=== PATIENT | male | born 1930 ===

== ENCOUNTER 2016-10-13 15:51 | Inpatient (IN) | payer MEDICARE, OTHER, SELFPAY ==
[2016-10-13 18:34] VITALS: BMI 26.4
[2016-10-13] MEDS: Insulin Lispro (humaLOG) 100 Units/ml Inj SC SCH (21:40)
[2016-10-14] MEDS: Insulin Lispro (humaLOG) 100 Units/ml Inj SC SCH ×4 (06:32→21:20)
[2016-10-14] MEDS: GlipiZIDE 5 mg SR Tab PO SCH (08:38)
--- NOTE | 2016-10-14 12:15 | CP.PCM.CON ---
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 Patient with multiple risk factors, including but not limited to DM, HTN, hyperlipidemia. MRI showed a right BG infarct. Review of Systems - Constitutional Constitutional: absent: Anorexia - EENT Nose/Mouth/Throat: Nasal Congestion - Cardiovascular Cardiovascular: absent: Chest Pain - Respiratory Respiratory: absent: Cough, Dyspnea - Gastrointestinal Gastrointestinal: absent: Belching - Musculoskeletal Musculoskeletal: Other (left hand swelling). absent: Back Pain - Integumentary Integumentary: absent: Photosensitivity - Neurological Neurological: absent: Abnormal Movements, Burning Sensations, Paresthesias - Psychiatric Psychiatric: absent: Anxiety Past Patient History - Past Medical History & Family History Past Medical History?: Yes - Past Social History Smoking Status: Never Smoked Alcohol: None Home Situation {Lives}: With Family (2 flights) - CARDIAC Hx Hypercholesterolemia: Yes Hx Hypertension: Yes - PULMONARY Hx Respiratory Disorders: Yes Hx Pneumonia: Yes - NEUROLOGICAL Hx Neurological Disorder: Yes HX Cerebrovascular Accident: Yes - HEENT Hx HEENT Problems: Yes Hx Cataracts: Yes - RENAL Hx Chronic Kidney Disease: Yes Other/Comment: CKD II - ENDOCRINE/METABOLIC Hx Endocrine Disorders: Yes Hx Diabetes Mellitus Type 2: Yes Other/Comment: Diabetic Neuropathy. - HEMATOLOGICAL/ONCOLOGICAL Hx Blood Disorders: No Hx AIDS: No Hx Human Immunodeficiency Virus (HIV): No - INTEGUMENTARY Hx Dermatological Problems: No - MUSCULOSKELETAL/RHEUMATOLOGICAL Hx Falls: Yes - GASTROINTESTINAL Hx Gastrointestinal Disorders: No - GENITOURINARY/GYNECOLOGICAL Hx Genitourinary Disorders: No - PSYCHIATRIC Hx Psychophysiologic Disorder: No Hx Substance Use: No - SURGICAL HISTORY Hx Surgeries: No - ANESTHESIA Hx Anesthesia: No Meds Allergies/Adverse Reactions: Allergies Allergy/AdvReac Type Severity Reaction Status Date / Time No Known Allergies Allergy Unverified 10/13/16 16:07 - Medications Medications: Current Medications Amlodipine Besylate (Norvasc) 10 mg PO DAILY [facility] Last Admin: 10/14/16 08:38 Dose: 10 mg Aspirin (Ecotrin) 81 mg PO DAILY [facility] Last Admin: 10/14/16 08:38 Dose: 81 mg Atorvastatin Calcium (Lipitor) 40 mg PO HS [facility] Last Admin: 10/13/16 21:38 Dose: 40 mg Clopidogrel Bisulfate (Plavix) 75 mg PO DAILY [facility] Last Admin: 10/14/16 08:37 Dose: 75 mg Gabapentin (Neurontin) 300 mg PO [facility] Glipizide (Glucotrol Xl) 5 mg PO DAILY [facility] Last Admin: 10/14/16 08:38 Dose: 5 mg Heparin Sodium (Porcine) (Heparin) 5,000 units SC Q8 [facility] PRN Reason: Protocol Last Admin: 10/14/16 05:54 Dose: 5,000 units Hydralazine HCl (Apresoline) 50 mg PO Q8 [facility] Last Admin: 10/14/16 05:55 Dose: 50 mg Insulin Human Lispro (Humalog) 0 units SC ACHS [facility] PRN Reason: Protocol Last Admin: 10/14/16 06:32 Dose: Not Given Physical Exam - Constitutional Appears: No Acute Distress - Head Exam Head Exam: ATRAUMATIC, NORMAL INSPECTION, NORMOCEPHALIC - Eye Exam Eye Exam: EOMI. absent: Normal appearance (left conjunctiva are red) - ENT Exam ENT Exam: Mucous Membranes Moist - Respiratory Exam Respiratory Exam: NORMAL BREATHING PATTERN - Cardiovascular Exam Cardiovascular Exam: REGULAR RHYTHM - GI/Abdominal Exam GI & Abdominal Exam: absent: Distended - Extremities Exam Extremities exam: Negative for: calf tenderness - Neurological Exam Neurological exam: Alert - Psychiatric Exam Psychiatric exam: Normal Affect, Normal Mood Results - Vital Signs Recent Vital Signs: Last Vital Signs Temp 96.9 F L 10/14/16 09:07 Pulse 78 10/14/16 09:07 Resp 19 10/14/16 09:07 BP 185/82 H 10/14/16 09:07 Pulse Ox 98 10/14/16 09:07 - Labs Labs: Laboratory Results - last 24 hr 10/13/16 10/14/16 21:18 05:34 POC Glucose (mg/dL) 211 H 124 H Assessment & Plan - Assessment and Plan (Free Text) Assessment: 85 y/o right hand dominant male with right cva left HP minimal extension in the elbow, no flexion and some hip extension as well no distal ankle or foot movement PT/OT to continue to help increase functional independence Team conference for d/c planning Pain: controlled Vascular: no evidence of DVT GI: No evidence of constipation or diarrhea Patient is an excellent acute rehabilitation candidate and will have focused speech, PT, OT and recreational therapy to help facilitate a safe and appropriate d/c plan impairment code 01.1
--- NOTE | 2016-10-14 16:24 | CP.PCM.PN ---
Subjective - Date & Time of Evaluation Date of Evaluation: 10/14/16 Time of Evaluation: 16:23 - Subjective Subjective: right CVA left HP Objective - Vital Signs/Intake and Output Vital Signs (last 24 hours): Temp Pulse Resp BP Pulse Ox 96.9 F L 86 19 186/99 H 98 10/14/16 09:07 10/14/16 13:08 10/14/16 09:07 10/14/16 13:08 10/14/16 09:07 - Medications Medications: Current Medications Amlodipine Besylate (Norvasc) 10 mg PO DAILY [facility] Last Admin: 10/14/16 08:38 Dose: 10 mg Aspirin (Ecotrin) 81 mg PO DAILY [facility] Last Admin: 10/14/16 08:38 Dose: 81 mg Atorvastatin Calcium (Lipitor) 40 mg PO HS [facility] Last Admin: 10/13/16 21:38 Dose: 40 mg Clopidogrel Bisulfate (Plavix) 75 mg PO DAILY [facility] Last Admin: 10/14/16 08:37 Dose: 75 mg Gabapentin (Neurontin) 300 mg PO HS [facility] Glipizide (Glucotrol Xl) 5 mg PO DAILY [facility] Last Admin: 10/14/16 08:38 Dose: 5 mg Heparin Sodium (Porcine) (Heparin) 5,000 units SC Q8 [facility] PRN Reason: Protocol Last Admin: 10/14/16 13:07 Dose: 5,000 units Hydralazine HCl (Apresoline) 100 mg PO Q8 [facility] Insulin Human Lispro (Humalog) 0 units SC ACHS [facility] PRN Reason: Protocol Last Admin: 10/14/16 12:31 Dose: 1 unit Physiatry Overall Plan of Care - Overall Plan of Care Estimated Length of Stay in Weeks: 3 Rehab Impairment: Mobility, Gait, Cognition, Speech, Balance, Coordination Etiologic Diagnosis: Cerebrovascular Accident Rehab/Medical Prognosis: Guarded - Anticipated Interventions Physical Therapy:: Yes Occupational Therapy:: Yes Speech Therapy:: Yes Recreational Therapy:: Yes - Therapy Goals Bed Mobility: Minimal Assistance Ambulation: Minimal Assistance Functional Positional Changes:: Minimal Assistance - Discharge Plan Discharge Destination: Subacute
--- NOTE | 2016-10-14 19:03 | CP.PCM.CON ---
History of Present Illness - History of Present Illness History of Present Illness: 85 year old male with PMHx of DM, HTN, HLD, right CVA was seen resting comfortably at bedside regarding elongated toenails. Patient states that he has not had his nails cut in a long time. He admits to pain to his nails. He denies n/v/f/c/sob/cp. Past Patient History - Past Medical History & Family History Past Medical History?: Yes - Past Social History Smoking Status: Never Smoked Alcohol: None Home Situation {Lives}: With Family (2 flights) - CARDIAC Hx Hypercholesterolemia: Yes Hx Hypertension: Yes - PULMONARY Hx Respiratory Disorders: Yes Hx Pneumonia: Yes - NEUROLOGICAL Hx Neurological Disorder: Yes HX Cerebrovascular Accident: Yes - HEENT Hx HEENT Problems: Yes Hx Cataracts: Yes - RENAL Hx Chronic Kidney Disease: Yes Other/Comment: CKD II - ENDOCRINE/METABOLIC Hx Endocrine Disorders: Yes Hx Diabetes Mellitus Type 2: Yes Other/Comment: Diabetic Neuropathy. - HEMATOLOGICAL/ONCOLOGICAL Hx Blood Disorders: No Hx AIDS: No Hx Human Immunodeficiency Virus (HIV): No - INTEGUMENTARY Hx Dermatological Problems: No - MUSCULOSKELETAL/RHEUMATOLOGICAL Hx Falls: Yes - GASTROINTESTINAL Hx Gastrointestinal Disorders: No - GENITOURINARY/GYNECOLOGICAL Hx Genitourinary Disorders: No - PSYCHIATRIC Hx Psychophysiologic Disorder: No Hx Substance Use: No - SURGICAL HISTORY Hx Surgeries: No - ANESTHESIA Hx Anesthesia: No Meds Allergies/Adverse Reactions: Allergies Allergy/AdvReac Type Severity Reaction Status Date / Time No Known Allergies Allergy Unverified 10/13/16 16:07 - Medications Medications: Current Medications Amlodipine Besylate (Norvasc) 10 mg PO DAILY [facility] Last Admin: 10/14/16 08:38 Dose: 10 mg Aspirin (Ecotrin) 81 mg PO DAILY [facility] Last Admin: 10/14/16 08:38 Dose: 81 mg Atorvastatin Calcium (Lipitor) 40 mg PO HS [facility] Last Admin: 10/13/16 21:38 Dose: 40 mg Clopidogrel Bisulfate (Plavix) 75 mg PO DAILY [facility] Last Admin: 10/14/16 08:37 Dose: 75 mg Gabapentin (Neurontin) 300 mg PO [facility] Glipizide (Glucotrol Xl) 5 mg PO DAILY [facility] Last Admin: 10/14/16 08:38 Dose: 5 mg Heparin Sodium (Porcine) (Heparin) 5,000 units SC Q8 [facility] PRN Reason: Protocol Last Admin: 10/14/16 13:07 Dose: 5,000 units Hydralazine HCl (Apresoline) 100 mg PO Q8 [facility] Insulin Human Lispro (Humalog) 0 units SC ACHS [facility] PRN Reason: Protocol Last Admin: 10/14/16 16:34 Dose: Not Given Tobramycin/Dexamethasone (Tobradex Opht Susp) 1 drop OU Q6 [facility] Stop: 10/19/16 18:01 Physical Exam - Constitutional Appears: Well, Non-toxic, No Acute Distress - Extremities Exam Additional comments: Vasc: DP and PT pulses palpable 2/4 b/l. Skin temperature warm to cool from proximal to distal b/l. CFT <3 seconds to all digits b/l. No edema noted to b/l LE Neuro: Gross sensation intact b/l. Derm: Nails 1-5 b/l are thickened and elongated. Webspaces 1-5 are clean, dry, intact. No open lesions noted Ortho: Pain on palpation to nails 1-5 b/l. - Neurological Exam Neurological exam: Alert, Oriented x3 - Psychiatric Exam Psychiatric exam: Normal Affect, Normal Mood Results - Vital Signs Recent Vital Signs: Last Vital Signs Temp 97.4 F L 10/14/16 16:41 Pulse 86 10/14/16 16:41 Resp 18 10/14/16 16:41 BP 171/88 H 10/14/16 16:41 Pulse Ox 98 10/14/16 16:41 - Labs Labs: Laboratory Results - last 24 hr 10/13/16 10/14/16 10/14/16 21:18 05:34 11:29 POC Glucose (mg/dL) 211 H 124 H 154 H 10/14/16 16:07 POC Glucose (mg/dL) 90 Assessment & Plan - Assessment and Plan (Free Text) Assessment: 85 year old male with elongated toenails 1-5 b/l Plan: Patient examined and evaluated Chart and vitals reviewed Discussed in detail with attending, Dr. Zamora Nails 1-5 b/l were debrided in thickness and in length with nail nippers without incident Thank you for allowing us to care for your patient Please re-consult as needed
[2016-10-14] MEDS: Dexamethasone/Tobramycin Ophth Susp OU SCH ×2 (19:56→23:41)
--- NOTE | 2016-10-14 22:20 | CP.PCM.HP ---
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 Present on Admission - Present on Admission Any Indicators Present on Admission: No History of DVT/PE: No History of Uncontrolled Diabetes: No Urinary Catheter: No Decubitus Ulcer Present: No Review of Systems - Review of Systems All systems: reviewed and no additional remarkable complaints except Past Patient History - Past Medical History & Family History Past Medical History?: Yes Past Family History: Reviewed and not pertinent - Past Social History Smoking Status: Never Smoked Alcohol: None Drugs: Denies Home Situation {Lives}: With Family (2 flights) - CARDIAC Hx Hypercholesterolemia: Yes Hx Hypertension: Yes - PULMONARY Hx Respiratory Disorders: Yes Hx Pneumonia: Yes - NEUROLOGICAL Hx Neurological Disorder: Yes HX Cerebrovascular Accident: Yes - HEENT Hx HEENT Problems: Yes Hx Cataracts: Yes - RENAL Hx Chronic Kidney Disease: Yes Other/Comment: CKD II - ENDOCRINE/METABOLIC Hx Endocrine Disorders: Yes Hx Diabetes Mellitus Type 2: Yes Other/Comment: Diabetic Neuropathy. - HEMATOLOGICAL/ONCOLOGICAL Hx Blood Disorders: No Hx AIDS: No Hx Human Immunodeficiency Virus (HIV): No - INTEGUMENTARY Hx Dermatological Problems: No - MUSCULOSKELETAL/RHEUMATOLOGICAL Hx Falls: Yes - GASTROINTESTINAL Hx Gastrointestinal Disorders: No - GENITOURINARY/GYNECOLOGICAL Hx Genitourinary Disorders: No - PSYCHIATRIC Hx Psychophysiologic Disorder: No Hx Substance Use: No - SURGICAL HISTORY Hx Surgeries: No - ANESTHESIA Hx Anesthesia: No Meds Home Medications: Home Medication List Medication Instructions Recorded Confirmed Type Calcium/Vitamin D [Oyster Shell 1 tab PO BIDWM tab 11/02/16 Rx Calcium/Vitamin D 500 mg-200 IU] Ergocalciferol [Drisdol 50,000 1 cap PO Q7D cap 11/02/16 Rx Intl Units Cap] Famotidine [Pepcid] 20 mg PO BID tab 11/02/16 Rx GlipiZIDE SR [Glucotrol XL] 5 mg PO DAILY tab 11/02/16 Rx Sertraline [Zoloft] 12.5 mg PO DAILY tab 11/02/16 Rx Allergies/Adverse Reactions: Allergies Allergy/AdvReac Type Severity Reaction Status Date / Time No Known Allergies Allergy Unverified 10/13/16 16:07 Physical Exam - Constitutional Appears: Well, No Acute Distress - Head Exam Head Exam: ATRAUMATIC, NORMAL INSPECTION, NORMOCEPHALIC - Eye Exam Eye Exam: EOMI, Normal appearance, PERRL Pupil Exam: NORMAL ACCOMODATION, PERRL - ENT Exam ENT Exam: Mucous Membranes Moist, Normal Exam - Neck Exam Neck exam: Positive for: Normal Inspection - Respiratory Exam Respiratory Exam: Clear to Auscultation Bilateral, NORMAL BREATHING PATTERN - Cardiovascular Exam Cardiovascular Exam: REGULAR RHYTHM, +S1, +S2 - GI/Abdominal Exam GI & Abdominal Exam: Normal Bowel Sounds, Soft. absent: Tenderness - Back Exam Back exam: NORMAL INSPECTION - Neurological Exam Neurological exam: Abnormal Gait, Alert, CN II-XII Intact, Motor Sensory Deficit - Psychiatric Exam Psychiatric exam: Normal Affect, Normal Mood - Skin Skin Exam: Dry, Intact, Normal Color, Warm Results - Vital Signs Recent Vital Signs: Last Vital Signs Temp 97.4 F L 10/14/16 20:35 Pulse 76 10/14/16 21:13 Resp 20 10/14/16 20:35 BP 181/84 H 10/14/16 21:13 Pulse Ox 97 10/14/16 20:35 - Labs Result Diagrams: 10/23/16 14:35 10/30/16 07:43 Labs: Laboratory Results - last 24 hr 10/14/16 10/14/16 10/14/16 05:34 11:29 16:07 POC Glucose (mg/dL) 124 H 154 H 90 10/14/16 20:24 POC Glucose (mg/dL) 117 H Assessment & Plan (1) CVA (cerebral vascular accident) Assessment and Plan: ASA/Plavix/Lipitor PT/OT and Speech Therapy Status: Acute Priority: High (2) Hypertension Assessment and Plan: Continue Hydralazine and Amlodipine Status: Chronic Priority: Low (3) Diabetes mellitus Assessment and Plan: Continue Glipizide Insulin Lispiro Status: Chronic Priority: Low
[2016-10-15] MEDS: Dexamethasone/Tobramycin Ophth Susp OU SCH ×3 (05:42→17:05)
[2016-10-15] MEDS: Insulin Lispro (humaLOG) 100 Units/ml Inj SC SCH ×4 (06:34→21:27)
[2016-10-15 08:21] LABS: HEMATOCRIT 40.5 % (35.0-51.0); MEAN CELL VOLUME 82.9 fl (80.0-94.0); MEAN CORPUSCULAR HGB CONC 32.6 g/dL (33.0-37.0); RED CELL DISTRIBUTION WIDTH 15.4 % (11.5-14.5); WHITE BLOOD COUNT 7.8 K/uL (4.8-10.8)
[2016-10-15 08:24] LABS: BILIRUBIN,TOTAL 0.5 mg/dl (0.2-1.3); POTASSIUM 4.2 MMOL/L (3.6-5.0); TOTAL PROTEIN 6.8 G/DL (6.3-8.2)
[2016-10-15] MEDS: GlipiZIDE 5 mg SR Tab PO SCH (08:40)
[2016-10-16] MEDS: Dexamethasone/Tobramycin Ophth Susp OU SCH ×4 (05:56→18:12)
[2016-10-16] MEDS: Insulin Lispro (humaLOG) 100 Units/ml Inj SC SCH ×4 (06:56→21:59)
[2016-10-16] MEDS: GlipiZIDE 5 mg SR Tab PO SCH (09:24)
--- NOTE | 2016-10-16 15:38 | CP.PCM.PN ---
Subjective - Date & Time of Evaluation Date of Evaluation: 10/16/16 Time of Evaluation: 15:38 - Subjective Subjective: Patient seen, sitting in w/c in good spirits denies pain or sob no fever dense left HP continue current care Objective - Vital Signs/Intake and Output Vital Signs (last 24 hours): Temp Pulse Resp BP Pulse Ox 97.5 F L 75 19 140/80 97 10/16/16 08:16 10/16/16 13:43 10/16/16 08:16 10/16/16 13:43 10/16/16 08:16 - Medications Medications: Current Medications Amlodipine Besylate (Norvasc) 10 mg PO DAILY [facility] Last Admin: 10/16/16 09:25 Dose: 10 mg Aspirin (Ecotrin) 81 mg PO DAILY [facility] Last Admin: 10/16/16 09:25 Dose: 81 mg Atorvastatin Calcium (Lipitor) 40 mg PO HS [facility] Last Admin: 10/15/16 21:26 Dose: 40 mg Clopidogrel Bisulfate (Plavix) 75 mg PO DAILY [facility] Last Admin: 10/16/16 09:25 Dose: 75 mg Famotidine (Pepcid) 20 mg PO BID [facility] Last Admin: 10/16/16 09:25 Dose: 20 mg Gabapentin (Neurontin) 300 mg PO HS [facility] Last Admin: 10/15/16 21:27 Dose: 300 mg Glipizide (Glucotrol Xl) 5 mg PO DAILY [facility] Last Admin: 10/16/16 09:24 Dose: 5 mg Heparin Sodium (Porcine) (Heparin) 5,000 units SC Q8 [facility] PRN Reason: Protocol Last Admin: 10/16/16 05:56 Dose: 5,000 units Hydralazine HCl (Apresoline) 100 mg PO Q8 [facility] Last Admin: 10/16/16 13:43 Dose: 100 mg Insulin Human Lispro (Humalog) 0 units SC ACHS [facility] PRN Reason: Protocol Last Admin: 10/16/16 11:30 Dose: 1 unit Tobramycin/Dexamethasone (Tobradex Opht Susp) 1 drop OU Q6 [facility] Stop: 10/19/16 18:01 Last Admin: 10/16/16 13:44 Dose: 1 drop - Labs Labs: 10/15/16 07:00 10/15/16 07:00
[2016-10-17] MEDS: Dexamethasone/Tobramycin Ophth Susp OU SCH ×5 (00:41→23:11)
[2016-10-17] MEDS: Insulin Lispro (humaLOG) 100 Units/ml Inj SC SCH ×4 (06:35→21:14)
[2016-10-17] MEDS: GlipiZIDE 5 mg SR Tab PO SCH (08:51)
[2016-10-18] MEDS: Dexamethasone/Tobramycin Ophth Susp OU SCH ×3 (06:08→17:15)
[2016-10-18] MEDS: Insulin Lispro (humaLOG) 100 Units/ml Inj SC SCH ×4 (06:40→21:37)
[2016-10-18] MEDS: GlipiZIDE 5 mg SR Tab PO SCH (08:55)
--- NOTE | 2016-10-18 23:47 | CP.PCM.PN ---
Subjective - Date & Time of Evaluation Date of Evaluation: 10/18/16 Time of Evaluation: 10:00 - Subjective Subjective: Seen and examined at the bed side. Still weak to the left UE and LE with some movement at the shoulder. no cough or sob after eating. Objective - Vital Signs/Intake and Output Vital Signs (last 24 hours): Temp Pulse Resp BP Pulse Ox 98.9 F 69 20 175/70 H 96 10/18/16 20:05 10/18/16 21:35 10/18/16 20:05 10/18/16 21:35 10/18/16 20:05 - Medications Medications: Current Medications Amlodipine Besylate (Norvasc) 10 mg PO DAILY [facility] Last Admin: 10/18/16 08:55 Dose: 10 mg Aspirin (Ecotrin) 81 mg PO DAILY [facility] Last Admin: 10/18/16 08:55 Dose: 81 mg Atorvastatin Calcium (Lipitor) 40 mg PO HS [facility] Last Admin: 10/18/16 21:38 Dose: 40 mg Clopidogrel Bisulfate (Plavix) 75 mg PO DAILY [facility] Last Admin: 10/18/16 08:55 Dose: 75 mg Famotidine (Pepcid) 20 mg PO BID [facility] Last Admin: 10/18/16 16:42 Dose: 20 mg Gabapentin (Neurontin) 300 mg PO HS [facility] Last Admin: 10/18/16 21:38 Dose: 300 mg Glipizide (Glucotrol Xl) 5 mg PO DAILY [facility] Last Admin: 10/18/16 08:55 Dose: 5 mg Heparin Sodium (Porcine) (Heparin) 5,000 units SC Q8 [facility] PRN Reason: Protocol Last Admin: 10/18/16 21:36 Dose: 5,000 units Hydralazine HCl (Apresoline) 100 mg PO Q8 [facility] Last Admin: 10/18/16 21:35 Dose: 100 mg Insulin Human Lispro (Humalog) 0 units SC ACHS [facility] PRN Reason: Protocol Last Admin: 10/18/16 21:37 Dose: Not Given Tobramycin/Dexamethasone (Tobradex Opht Susp) 1 drop OU Q6 [facility] Stop: 10/19/16 18:01 Last Admin: 10/18/16 17:15 Dose: 1 drop - Labs Labs: 10/15/16 07:00 10/15/16 07:00 - Constitutional Appears: Well - Head Exam Head Exam: ATRAUMATIC, NORMAL INSPECTION, NORMOCEPHALIC - Eye Exam Eye Exam: EOMI, Normal appearance, PERRL Pupil Exam: NORMAL ACCOMODATION, PERRL - ENT Exam ENT Exam: Mucous Membranes Moist, Normal Exam - Neck Exam Neck Exam: Full ROM, Normal Inspection. absent: Lymphadenopathy - Respiratory Exam Respiratory Exam: Clear to Ausculation Bilateral, NORMAL BREATHING PATTERN - Cardiovascular Exam Cardiovascular Exam: REGULAR RHYTHM, +S1, +S2. absent: Murmur - GI/Abdominal Exam GI & Abdominal Exam: Soft, Normal Bowel Sounds. absent: Tenderness - Extremities Exam Extremities Exam: Full ROM, Normal Capillary Refill, Normal Inspection. absent : Joint Swelling, Pedal Edema - Back Exam Back Exam: NORMAL INSPECTION. absent: CVA tenderness (L), CVA tenderness (R) - Neurological Exam Neurological Exam: Abnormal Gait, Alert, Awake, CN II-XII Intact, Motor Sensory Deficit, Oriented x3 Neuro motor strength exam: Left Upper Extremity: 2/1, Right Upper Extremity: 5, Left Lower Extremity: 2/1, Right Lower Extremity: 5 - Psychiatric Exam Psychiatric exam: Normal Affect, Normal Mood - Skin Skin Exam: Dry, Intact, Normal Color, Warm Assessment and Plan (1) CVA (cerebral vascular accident) Assessment & Plan: with Left Hemiplegia Little improvement ASA/Plavix/Lipitor PT/OT/ Speech Therapy Status: Acute (2) Diabetes mellitus Status: Chronic (3) Hypertension Status: Chronic
[2016-10-19] MEDS: Dexamethasone/Tobramycin Ophth Susp OU SCH ×4 (05:18→17:02)
[2016-10-19] MEDS: Insulin Lispro (humaLOG) 100 Units/ml Inj SC SCH ×4 (06:32→21:43)
[2016-10-19] MEDS: GlipiZIDE 5 mg SR Tab PO SCH (08:47)
--- NOTE | 2016-10-19 15:34 | CP.PCM.PN ---
Subjective - Date & Time of Evaluation Date of Evaluation: 10/19/16 Time of Evaluation: 15:33 - Subjective Subjective: Patient seen in PT working hard and following instructions well no pain sit to stand min A now ambulating about 50' with WC follow and mod A continue current care Objective - Vital Signs/Intake and Output Vital Signs (last 24 hours): Temp Pulse Resp BP Pulse Ox 97.5 F L 77 20 155/81 H 98 10/19/16 08:52 10/19/16 08:52 10/19/16 08:52 10/19/16 13:08 10/19/16 08:52 - Medications Medications: Current Medications Amlodipine Besylate (Norvasc) 10 mg PO DAILY [facility] Last Admin: 10/19/16 08:47 Dose: 10 mg Aspirin (Ecotrin) 81 mg PO DAILY [facility] Last Admin: 10/19/16 08:47 Dose: 81 mg Atorvastatin Calcium (Lipitor) 40 mg PO HS [facility] Last Admin: 10/18/16 21:38 Dose: 40 mg Clopidogrel Bisulfate (Plavix) 75 mg PO DAILY [facility] Last Admin: 10/19/16 08:48 Dose: 75 mg Famotidine (Pepcid) 20 mg PO BID [facility] Last Admin: 10/19/16 08:48 Dose: 20 mg Gabapentin (Neurontin) 300 mg PO HS [facility] Last Admin: 10/18/16 21:38 Dose: 300 mg Glipizide (Glucotrol Xl) 5 mg PO DAILY [facility] Last Admin: 10/19/16 08:47 Dose: 5 mg Heparin Sodium (Porcine) (Heparin) 5,000 units SC Q8 [facility] PRN Reason: Protocol Last Admin: 10/19/16 13:08 Dose: 5,000 units Hydralazine HCl (Apresoline) 100 mg PO Q8 [facility] Last Admin: 10/19/16 13:08 Dose: 100 mg Insulin Human Lispro (Humalog) 0 units SC ACHS [facility] PRN Reason: Protocol Last Admin: 10/19/16 13:07 Dose: 1 unit Tobramycin/Dexamethasone (Tobradex Opht Susp) 1 drop OU Q6 [facility] Stop: 10/19/16 18:01 Last Admin: 10/19/16 13:00 Dose: 1 drop - Labs Labs: 10/15/16 07:00 10/15/16 07:00
[2016-10-20] MEDS: Insulin Lispro (humaLOG) 100 Units/ml Inj SC SCH ×4 (06:56→21:08)
[2016-10-20] MEDS: GlipiZIDE 5 mg SR Tab PO SCH (09:17)
--- NOTE | 2016-10-20 13:19 | PSY.TMCNF ---
Nursing - Vital Signs Vital Signs (Last 8 hours): Vital Signs 10/20/16 10/20/16 10/20/16 06:03 07:29 09:13 Temperature 97.7 F 98.0 F Pulse Rate 68 68 80 Respiratory 18 20 Rate Blood Pressure 157/74 H 157/74 H 140/65 O2 Sat by Pulse 97 Oximetry 10/20/16 10/20/16 09:15 13:06 Temperature Pulse Rate 86 Respiratory Rate Blood Pressure 140/65 176/83 H O2 Sat by Pulse Oximetry Pain: 0 - Precautions: Precautions: Fall Prevention, Aspiration - Medications/Other Issues Comment: Pt at moderate nutritional risk. goals: 1. Pt will consume 75-100% of his meals. 2. Pt will maintain blood sugar levels between 70-180 mg/dl. Follow -up due on 10/21/2016 - Consults Comment: Dr. Gomes, Dr. Zamora - Toileting Toileting: Maximal Assistance - Bladder Management Bladder Pattern: Normal Voiding Method: Urinal - Bowel Management Bowel Pattern: Normal Bowel Management: Supervision Frequency of Accidents: 0 - Transfers Transfers: Moderate Assistance - ADL's ADL's: Maximal Assistance - Patient/Family Teaching Comments: CARE POST CVA AND SAFETY PRECAUTIONS - Goals/Time Frame Comments: PER MULTIDISCIPLINARY CARE PLAN GOALS Physical Therapy - Transfers Sit to Stand: Verbal Cues, Minimal Assistance - Ambulation Level of Assistance: Verbal Cues, Moderate Assistance Distance (ft.): 60 Assistive Devices: N/A, Wide base quad cane - Stair Negotiation Stairs: Level of Assistance: Maximum Assistance Number of Stairs: 2 Stairs: Assistive Devices: Right Handrail - Standing Balance Static Stand: Moderate Assistance Dynamic Stand: Moderate Assistance, Maximal Assistance - Pain Pain (assessed during therapy session): 0 - Insight/Carryover Insight/Carryover: Good - Patient/Family Education Comment: Pt educated in safety/falls, transfers, ADLs, POC, cognition, balance - edu ongoing. - Assessment/Plan Assessment: Logan Zhang presents with: 1) mild dysarthria characterized by imprecise articulation precision; 2) mild deficits in short term memory; and 3) mild oral dysphagia characterized by prolonged mastication and mild oral stasis with finely chopped solids which is most likely related to missing dentition. MSW asked pt to have bring dentures to facility. Reciprocal comprehension was verbally expressed. Recommend finely chopped diet with thin liquids at this time. Pt would benefit from short term skilled ST tx to improve deficits in these areas. - Goals Timeframe: 3 weeks Goals: 1.Will complete bathing with min assist. 2.Will complete grooming with Mod I. 3.Will complete feeding with Mod I. 4.Will complete UBD with S after set up. 5.Will complete LBD with CGA. 6.Will complete rolling with mod I. 7.Will complete short sit <> supine with CGA. 8.Will complete SPT to/from wheelchair, bed, commode with Supervision and least restrictive device. 9.Will complete SPT to/from tub bench and uneven surfaces with CGA and least restrictive device - Provider Therapist: RICK WRIGHTN RN CRRN Occupational Therapy - Arousal/Attention/Orientation Patient Orientation: Person, Place, Time, Appropriate to Age, Appropriate to Situation - ADL/IADL Self Feeding: Supervision, Set-up Help Grooming: Supervision, Set-up Help Dressing-Upper Extremity: Moderate Assistance Dressing-Lower Extremity: Maximum Assistance Comment: To practice bathing tasks in future sessions. - Sitting Balance Static Sitting: Contact Guard Assist Dynamic Sitting: Minimal Assistance - Transfers Wheelchair to Bed Transfers: Minimal Assistance Toilet Transfers: Minimal Assistance - Wheelchair Management Level of Assistance: Dependent - Upper Extremity Status Right Upper Extremity Comment: PROM WFL, AROM WFL Left Upper Extremity Comment: PROM WFL; AROM impaired t/o. Pt noted with shoulder at least 2-/5 to 3-/5 and elbow/wrist 1/5; 0/5 fingers - Pain Pain (assessed during therapy session): 0 - Insight/Carryover Insight/Carryover: Good - Patient/Family Education Comment: Pt educated in safety/falls, transfers, ADLs, POC, cognition, balance - edu ongoing. - Assessment/Plan Assessment: Logan Zhang presents with: 1) mild dysarthria characterized by imprecise articulation precision; 2) mild deficits in short term memory; and 3) mild oral dysphagia characterized by prolonged mastication and mild oral stasis with finely chopped solids which is most likely related to missing dentition. MSW asked pt to have bring dentures to facility. Reciprocal comprehension was verbally expressed. Recommend finely chopped diet with thin liquids at this time. Pt would benefit from short term skilled ST tx to improve deficits in these areas. - Goals Timeframe: 3 weeks Goals: 1.Will complete bathing with min assist. 2.Will complete grooming with Mod I. 3.Will complete feeding with Mod I. 4.Will complete UBD with S after set up. 5.Will complete LBD with CGA. 6.Will complete rolling with mod I. 7.Will complete short sit <> supine with CGA. 8.Will complete SPT to/from wheelchair, bed, commode with Supervision and least restrictive device. 9.Will complete SPT to/from tub bench and uneven surfaces with CGA and least restrictive device - Provider Therapist: Linda KEENE License Number: [id number] Speech Therapy - Consult Information Patient on Program: Yes Medical Diagnosis: CVA Treatment Diagnosis: 1.) mild memory deficits. 2.) mild dysarthria. 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 MSW asked pt to have bring dentures to facility. Reciprocal comprehension was verbally expressed. Recommend finely chopped diet with thin liquids at this time. Pt would benefit from short term skilled ST tx to improve deficits in these areas. Plan: Continue Dysphagia Therapy, Continue Speech/Language Therapy Frequency: 3-5 times per week Duration: 1 week Goals/Timeframe: Please see progress note dated 10/19/16 for updated goals/POC Recommendations: Continue short-term speech/dysphagia tx - Provider Therapist: Loretta Freitas License Number: [id number] Recreational Therapy - Participation Participation: Participates in Individual and/or Group Sessions - Attendance Attendance: 3-5 times per week - Activities Leisure Activities: Cards and Games - Socialization Level of Socialization: Initiates/interacts freely with care givers and peer - Diversional Time Diversional Time: enjoys Meet[employer], games - Assessment Assessment/Plan: Logan Zhang presents with: 1) mild dysarthria characterized by imprecise articulation precision; 2) mild deficits in short term memory; and 3) mild oral dysphagia characterized by prolonged mastication and mild oral stasis with finely chopped solids which is most likely related to missing dentition. MSW asked pt to have bring dentures to facility. Reciprocal comprehension was verbally expressed. Recommend finely chopped diet with thin liquids at this time. Pt would benefit from short term skilled ST tx to improve deficits in these areas. - Provider Therapist: Amada Joya, FIN[employer]CIAL SALES REPRESENTATIVE #[id number] Nutrition - Current Diet Current Diet/ Supplement/ Feedings: Moderate consistent CHO 2 gram Na Mech altered(finely chopped) thin liquids - Appetite Percent Meal Consumed: 75-100% - Comments Comments: CARE POST CVA AND SAFETY PRECAUTIONS - Assessment/Goals/Time Frame Assessment/Goals/Time Frame: Pt at moderate nutritional risk. goals: 1. Pt will consume 75-100% of his meals. 2. Pt will maintain blood sugar levels between 70-180 mg/dl. Follow-up due on 10/21/2016 - Provider Provider: Anna Richter RD Case Management - Discharge Plan Discharge Plan: Subacute care Rehabilitation Plan - Treatment Plan Treatment Plan: Physical Therapy, Occupational Therapy, Speech, Dietary - Discharge Plan Estimated Date of Discharge: 11/02/16 Discharge to: Subacute
--- NOTE | 2016-10-20 17:31 | CP.PCM.PN ---
Subjective - Date & Time of Evaluation Date of Evaluation: 10/20/16 Time of Evaluation: 17:30 - Subjective Subjective: Patient seen in room denies sob/cp or joint pain able to have a discussion on progress wants to continue to improve aware that he has steps at home and currently will not be able to negotiate them safely remains motivated Objective - Vital Signs/Intake and Output Vital Signs (last 24 hours): Temp Pulse Resp BP Pulse Ox 97.8 F 91 H 22 147/85 96 10/20/16 15:57 10/20/16 15:57 10/20/16 15:57 10/20/16 15:57 10/20/16 15:57 - Medications Medications: Current Medications Amlodipine Besylate (Norvasc) 10 mg PO DAILY [facility] Last Admin: 10/20/16 09:15 Dose: 10 mg Aspirin (Ecotrin) 81 mg PO DAILY [facility] Last Admin: 10/20/16 09:16 Dose: 81 mg Atorvastatin Calcium (Lipitor) 40 mg PO HS [facility] Last Admin: 10/19/16 21:36 Dose: 40 mg Clopidogrel Bisulfate (Plavix) 75 mg PO DAILY [facility] Last Admin: 10/20/16 09:16 Dose: 75 mg Famotidine (Pepcid) 20 mg PO BID [facility] Last Admin: 10/20/16 17:10 Dose: 20 mg Gabapentin (Neurontin) 300 mg PO HS [facility] Last Admin: 10/19/16 21:36 Dose: 300 mg Glipizide (Glucotrol Xl) 5 mg PO DAILY [facility] Last Admin: 10/20/16 09:17 Dose: 5 mg Heparin Sodium (Porcine) (Heparin) 5,000 units SC Q8 [facility] PRN Reason: Protocol Last Admin: 10/20/16 13:06 Dose: 5,000 units Hydralazine HCl (Apresoline) 100 mg PO Q8 [facility] Last Admin: 10/20/16 13:06 Dose: 100 mg Insulin Human Lispro (Humalog) 0 units SC ACHS [facility] PRN Reason: Protocol Last Admin: 10/20/16 17:09 Dose: Not Given - Labs Labs: 10/15/16 07:00 10/15/16 07:00
--- NOTE | 2016-10-21 02:08 | CP.PCM.PN ---
Subjective - Date & Time of Evaluation Date of Evaluation: 10/21/16 Time of Evaluation: 11:00 - Subjective Subjective: Seen and examined at the bed side. Able to move at the left shoulder but unable to move at the hand. Denies coughing or chocking after eating. Coopertaive and participating well with the Therapist. Objective - Vital Signs/Intake and Output Vital Signs (last 24 hours): Temp Pulse Resp BP Pulse Ox 97.5 F L 78 20 153/78 H 96 10/20/16 20:16 10/20/16 21:00 10/20/16 20:16 10/20/16 21:00 10/20/16 20:16 - Medications Medications: Current Medications Amlodipine Besylate (Norvasc) 10 mg PO DAILY [facility] Last Admin: 10/20/16 09:15 Dose: 10 mg Aspirin (Ecotrin) 81 mg PO DAILY [facility] Last Admin: 10/20/16 09:16 Dose: 81 mg Atorvastatin Calcium (Lipitor) 40 mg PO HS [facility] Last Admin: 10/20/16 21:01 Dose: 40 mg Clopidogrel Bisulfate (Plavix) 75 mg PO DAILY [facility] Last Admin: 10/20/16 09:16 Dose: 75 mg Famotidine (Pepcid) 20 mg PO BID [facility] Last Admin: 10/20/16 17:10 Dose: 20 mg Gabapentin (Neurontin) 300 mg PO HS [facility] Last Admin: 10/20/16 21:01 Dose: 300 mg Glipizide (Glucotrol Xl) 5 mg PO DAILY [facility] Last Admin: 10/20/16 09:17 Dose: 5 mg Heparin Sodium (Porcine) (Heparin) 5,000 units SC Q8 [facility] PRN Reason: Protocol Last Admin: 10/20/16 21:01 Dose: 5,000 units Hydralazine HCl (Apresoline) 100 mg PO Q8 [facility] Last Admin: 10/20/16 21:00 Dose: 100 mg Insulin Human Lispro (Humalog) 0 units SC ACHS [facility] PRN Reason: Protocol Last Admin: 10/20/16 21:08 Dose: Not Given - Labs Labs: 10/15/16 07:00 10/15/16 07:00 - Constitutional Appears: Well, No Acute Distress - Head Exam Head Exam: ATRAUMATIC, NORMAL INSPECTION, NORMOCEPHALIC - Eye Exam Eye Exam: EOMI, Normal appearance, PERRL Pupil Exam: NORMAL ACCOMODATION, PERRL - ENT Exam ENT Exam: Mucous Membranes Moist, Normal Exam - Neck Exam Neck Exam: Full ROM, Normal Inspection. absent: Lymphadenopathy - Respiratory Exam Respiratory Exam: Clear to Ausculation Bilateral, NORMAL BREATHING PATTERN - Cardiovascular Exam Cardiovascular Exam: REGULAR RHYTHM, +S1, +S2. absent: Murmur - GI/Abdominal Exam GI & Abdominal Exam: Soft, Normal Bowel Sounds. absent: Tenderness - Extremities Exam Extremities Exam: Full ROM, Normal Capillary Refill, Normal Inspection. absent : Joint Swelling, Pedal Edema - Back Exam Back Exam: Full ROM, NORMAL INSPECTION. absent: CVA tenderness (L), CVA tenderness (R) - Neurological Exam Neurological Exam: Abnormal Gait, Alert, Awake, CN II-XII Intact Neuro motor strength exam: Left Upper Extremity: 2/1, Right Upper Extremity: 5, Left Lower Extremity: 2/1, Right Lower Extremity: 5 - Psychiatric Exam Psychiatric exam: Normal Affect, Normal Mood - Skin Skin Exam: Dry, Intact, Normal Color, Warm Assessment and Plan (1) CVA (cerebral vascular accident) Assessment & Plan: Continue Current Care Continue PT/OT Status: Acute (2) Diabetes mellitus Status: Chronic (3) Hypertension Status: Chronic
[2016-10-21] MEDS: Insulin Lispro (humaLOG) 100 Units/ml Inj SC SCH ×4 (06:51→21:00)
[2016-10-21] MEDS: GlipiZIDE 5 mg SR Tab PO SCH (09:04)
[2016-10-22] MEDS: Insulin Lispro (humaLOG) 100 Units/ml Inj SC SCH ×4 (06:53→21:00)
[2016-10-22] MEDS: GlipiZIDE 5 mg SR Tab PO SCH (08:27)
--- NOTE | 2016-10-22 17:51 | CP.PCM.PN ---
Subjective - Date & Time of Evaluation Date of Evaluation: 10/22/16 Time of Evaluation: 17:00 - Subjective Subjective: No Change. Eating well. Objective - Vital Signs/Intake and Output Vital Signs (last 24 hours): Temp Pulse Resp BP Pulse Ox 97.9 F 83 20 153/82 H 96 10/22/16 15:37 10/22/16 15:37 10/22/16 15:37 10/22/16 15:37 10/22/16 15:37 - Medications Medications: Current Medications Amlodipine Besylate (Norvasc) 10 mg PO DAILY [facility] Last Admin: 10/22/16 08:28 Dose: 10 mg Aspirin (Ecotrin) 81 mg PO DAILY [facility] Last Admin: 10/22/16 08:27 Dose: 81 mg Atorvastatin Calcium (Lipitor) 40 mg PO HS [facility] Last Admin: 10/21/16 21:16 Dose: 40 mg Clopidogrel Bisulfate (Plavix) 75 mg PO DAILY [facility] Last Admin: 10/22/16 08:28 Dose: 75 mg Famotidine (Pepcid) 20 mg PO BID [facility] Last Admin: 10/22/16 17:04 Dose: 20 mg Gabapentin (Neurontin) 300 mg PO HS [facility] Last Admin: 10/21/16 21:16 Dose: 300 mg Glipizide (Glucotrol Xl) 5 mg PO DAILY [facility] Last Admin: 10/22/16 08:27 Dose: 5 mg Heparin Sodium (Porcine) (Heparin) 5,000 units SC Q8 [facility] PRN Reason: Protocol Last Admin: 10/22/16 13:09 Dose: 5,000 units Hydralazine HCl (Apresoline) 100 mg PO Q8 [facility] Last Admin: 10/22/16 13:08 Dose: 100 mg Insulin Human Lispro (Humalog) 0 units SC ACHS [facility] PRN Reason: Protocol Last Admin: 10/22/16 17:05 Dose: Not Given - Labs Labs: 10/15/16 07:00 10/15/16 07:00 - Constitutional Appears: Well, No Acute Distress - Head Exam Head Exam: ATRAUMATIC, NORMAL INSPECTION, NORMOCEPHALIC - Eye Exam Eye Exam: EOMI, Normal appearance, PERRL Pupil Exam: NORMAL ACCOMODATION, PERRL - ENT Exam ENT Exam: Mucous Membranes Moist, Normal Exam - Neck Exam Neck Exam: Full ROM, Normal Inspection. absent: Lymphadenopathy - Respiratory Exam Respiratory Exam: Clear to Ausculation Bilateral, NORMAL BREATHING PATTERN - Cardiovascular Exam Cardiovascular Exam: REGULAR RHYTHM, +S1, +S2. absent: Murmur - GI/Abdominal Exam GI & Abdominal Exam: Soft, Normal Bowel Sounds. absent: Tenderness - Extremities Exam Extremities Exam: Full ROM, Normal Capillary Refill, Normal Inspection. absent : Joint Swelling, Pedal Edema - Back Exam Back Exam: NORMAL INSPECTION - Neurological Exam Neurological Exam: Abnormal Gait, Alert, Awake, CN II-XII Intact, Motor Sensory Deficit, Oriented x3 Neuro motor strength exam: Left Upper Extremity: 2/1, Right Upper Extremity: 5, Left Lower Extremity: 2/1, Right Lower Extremity: 5 - Psychiatric Exam Psychiatric exam: Normal Affect, Normal Mood - Skin Skin Exam: Dry, Intact, Normal Color, Warm Assessment and Plan (1) CVA (cerebral vascular accident) Assessment & Plan: Continue Current Care Status: Acute (2) Diabetes mellitus Status: Chronic (3) Hypertension Status: Chronic
[2016-10-23] MEDS: Insulin Lispro (humaLOG) 100 Units/ml Inj SC SCH ×2 (06:30→11:30)
[2016-10-23] MEDS: GlipiZIDE 5 mg SR Tab PO SCH (09:09)
[2016-10-23 09:40] LABS: CALCIUM 9.3 mg/dL (8.4-10.2); POTASSIUM 4.8 MMOL/L (3.6-5.0)
[2016-10-23 09:44] LABS: HEMATOCRIT 37.3 % (35.0-51.0); MEAN CORPUSCULAR HEMOGLOBIN 27.3 pg (27.0-31.0); MEAN CORPUSCULAR HGB CONC 32.5 g/dL (33.0-37.0); WHITE BLOOD COUNT 7.6 K/uL (4.8-10.8)
--- NOTE | 2016-10-23 14:34 | PCM.RRTMUL ---
<Dave Holley - Last Filed: 10/23/16 14:36> WRAPPER SIZER Nurse Assessment - Vital Signs Blood Pressure:: 140/80 Pulse Rate:: 85 Summary - Summary of Event Summary of Event: 85 y/o male with a PMHx of but not limited to HTN, DM, and recent CVA with left HP had an WRAPPER SIZER called for new onset chest pain, dizziness, slurred speech, and "tongue heaviness". residential mental health worker said the pt was alert, oriented, and verbally responsive as of this morning. No other complaints noted. No diaphoresis, vomiting, new onset weakness observed. Pt was responsive to verbal stimuli but unable to verbalize. Nursing staff reports pt received aspirin 81mg and plavix today. Vitals on presentation: BP: 146/76 HR: 81 RR: 16, BS: ~126 Gen: alert, responsive to verbal commands, unable to respond back secondary to slurred speech, confused CVS: RRR, S1S2+, no MRG, Left chest pain exacerbated by palpation Lungs: CTA B/L, no WRR Neuro: left sided hemiparesis, no change from baseline as per nursing and PT staff During WRAPPER SIZER: 12 lead EKG: no acute changes when compared to September 2016 EKG Labs ordered: Troponin CKMB Coags CBC with diff CMP Meds given: Nitro SL 0.4 Aspirin 81mg Code stroke called NIH stroke scale: 5pts Pt sent for emergent non-contrast head CT Dr. Wilcox Contacted, made aware, will contact Dr. Gillis (on-call neuro) Vitals at code end: 146/76, HR: 83 RR: 21 <Mery Charles - Last Filed: 10/23/16 18:35> Attending/Attestation - Attestation I have personally seen and examined this patient.: Yes I have fully participated in the care of the patient.: Yes I have reviewed all pertinent clinical information: Yes Notes (Text): 10/23/16 Responded to the WRAPPER SIZER with the residents Pt seen and examined. Hx reviewed. Pt was pointing to his chest , signaling that he is having a chest pain VS stable, saturation 96 % on room air Lungs : jose luis Heart: reg rhythm Pain sl reproducible on the left Abd: soft, nontender EKG: no change from previous ASA and SL NTG given. After a few minutes , pt verbalized that he felt dizzy and this time it was noted that his speech was more slurred than his baseline and seemed having difficulty expressing himself Code Stroke called Pt was immediately brought down for CT scan of the head Dr Christianson=pt's PMD notified of the event Dr Dorsey- pt's Neurologist called - spoke with him- he is out of town and rec to call Dr Gillis. Dr Gillis also out of town and rec to just call the Probate Clerk Neurologist for consult. NIHSS Stroke Scale 3 - Date/Time Evaluation Performed Date Performed: 10/23/16 Time Performed: 14:22 When Was NIHSS Performed: Code Stroke - How Severe is the Stroke Level of Consciousness: 0=Alert LOC to Questions: 1=One correct LOC to commands: 0=Obeys both correctly Best Gaze: 0=Normal Visual: 0=No visual loss Facial: 1=Minor asymmetry Motor Arm - Left: 2=Falls before 10 sec Motor Arm - Right: 0=No drift Motor Leg - Left: 2=Falls before 5 sec Motor Leg - Right: 0=No drift Limb Ataxia: 0=Absent Sensory: 0=Normal Best Language: 1=Mild to moderate aphasia Dysarthia: 1=Mild to moderate slurring Extinction & Inattention (Neglect): 0=Normal, no object Score: 8
[2016-10-23 14:50] LABS: BASO # 0.1 K/uL (0.0-0.2); BASO % 0.8 % (0.0-2.0); EOS # 0.2 K/uL (0.0-0.7); EOS % 2.5 % (0.0-4.0); HEMATOCRIT 37.9 % (35.0-51.0); LYMPH # 1.8 K/uL (1.0-4.3); MEAN CELL VOLUME 82.3 fl (80.0-94.0); MEAN CORPUSCULAR HEMOGLOBIN 27.2 pg (27.0-31.0); MEAN CORPUSCULAR HGB CONC 33.1 g/dL (33.0-37.0); MEAN PLATELET VOLUME 11.2 fl (7.2-11.7); MONO # 0.7 K/uL (0.0-0.8); MONO % 8.4 % (0.0-10.0); NEUT % 68.3 % (50.0-75.0); RED CELL DISTRIBUTION WIDTH 15.2 % (11.5-14.5); WHITE BLOOD COUNT 8.8 K/uL (4.8-10.8)
--- NOTE | 2016-10-23 14:57 | CT ---
PROCEDURE: CT HEAD WITHOUT CONTRAST. HISTORY: slurred speech, altered mental status COMPARISON: None available. TECHNIQUE: Axial computed tomography images were obtained through the head/brain without intravenous contrast. Radiation Dose: 1271.94 mGy-cm. This CT exam was performed using one or more of the following dose reduction techniques: Automated exposure control, adjustment of the mA and/or kV according to patient size, and/or use of iterative reconstruction technique. FINDINGS: HEMORRHAGE: No intracranial hemorrhage. BRAIN: Moderate to fairly significant chronic periventricular white matter ischemic changes are seen extending peripherally into the deep and subcortical regions bilaterally.. In addition, there are multiple bilateral basal nuclei lacunar type infarcts of most of which appear chronic however there is an area of ischemia in the right posterior basal ganglia that is age-indeterminate. Tiny chronic appearing brainstem lacunar type infarcts also felt be present Acute infarct cannot be completely excluded. Clinical correlation recommended. VENTRICLES: Unremarkable. No hydrocephalus. CALVARIUM: Unremarkable. PARANASAL SINUSES: Unremarkable as visualized. No significant inflammatory changes. MASTOID AIR CELLS: Unremarkable as visualized. No inflammatory changes. OTHER FINDINGS: None. IMPRESSION: Moderate to significant chronic white matter ischemic changes. In addition, there are multiple bilateral basal nuclei lacunar type infarcts of most of which appear chronic however there is an area of ischemia in the right posterior basal ganglia that is age-indeterminate. Tiny chronic appearing brainstem lacunar type infarcts also felt to be present. Acute infarct cannot be completely excluded. Clinical correlation recommended. [facility] Nurse Willem informed these findings at approximately 2:51 p.m with written down and read back verification
[2016-10-23 15:03] LABS: ALB/GLOB RATIO 1.1 (1.0-2.1); ALKALINE PHOSPHATASE 116 U/L (38-126); ALT/SGPT 61 U/L (21-72); AST/SGOT 42 U/L (17-59); BILIRUBIN,TOTAL 0.4 mg/dl (0.2-1.3); BLOOD UREA NITROGEN 52 mg/dl (9-20); CALCIUM 9.5 mg/dL (8.4-10.2); CARBON DIOXIDE 23 mmol/L (22-30); CHLORIDE 103 mmol/L (98-107); GFR AFRICAN-AMERICAN 30; POTASSIUM 5.3 MMOL/L (3.6-5.0); SODIUM 136 mmol/l (132-148); TOTAL PROTEIN 7.3 G/DL (6.3-8.2)
[2016-10-23 15:18] LABS: GLUCOSE,RANDOM 170 mg/dL (75-110)
--- NOTE | 2016-10-23 18:00 | CARD ---
APPROVED REPORT EKG Measurement Heart [id number] <Conclusion> Normal sinus rhythm Left axis deviation Nonspecific intraventricular block T wave abnormality, consider lateral ischemia Abnormal ECG
[2016-10-24] MEDS: Insulin Lispro (humaLOG) 100 Units/ml Inj SC SCH ×4 (16:30→22:01)
[2016-10-24] MEDS: GlipiZIDE 5 mg SR Tab PO SCH (17:13)
[2016-10-25] MEDS: Insulin Lispro (humaLOG) 100 Units/ml Inj SC SCH ×4 (06:37→21:00)
[2016-10-25] MEDS: GlipiZIDE 5 mg SR Tab PO SCH (09:28)
--- NOTE | 2016-10-25 09:57 | CP.PCM.PN ---
Subjective - Date & Time of Evaluation Date of Evaluation: 10/25/16 Time of Evaluation: 10:00 Objective - Vital Signs/Intake and Output Vital Signs (last 24 hours): Temp Pulse Resp BP Pulse Ox 97.5 F L 74 20 150/80 96 10/25/16 09:30 10/25/16 09:30 10/25/16 09:30 10/25/16 09:30 10/25/16 09:30 - Medications Medications: Current Medications Amlodipine Besylate (Norvasc) 10 mg PO DAILY [facility] Last Admin: 10/25/16 09:28 Dose: 10 mg Aspirin (Ecotrin) 81 mg PO DAILY [facility] Last Admin: 10/25/16 09:28 Dose: 81 mg Atorvastatin Calcium (Lipitor) 40 mg PO HS [facility] Last Admin: 10/24/16 21:54 Dose: 40 mg Clopidogrel Bisulfate (Plavix) 75 mg PO DAILY [facility] Last Admin: 10/25/16 09:29 Dose: 75 mg Famotidine (Pepcid) 20 mg PO BID [facility] Last Admin: 10/25/16 09:29 Dose: 20 mg Gabapentin (Neurontin) 300 mg PO HS [facility] Last Admin: 10/24/16 21:56 Dose: 300 mg Glipizide (Glucotrol Xl) 5 mg PO DAILY [facility] Last Admin: 10/25/16 09:28 Dose: 5 mg Heparin Sodium (Porcine) (Heparin) 5,000 units SC Q8 [facility] PRN Reason: Protocol Last Admin: 10/25/16 06:35 Dose: 5,000 units Hydralazine HCl (Apresoline) 100 mg PO Q8 [facility] Last Admin: 10/25/16 06:34 Dose: 100 mg Insulin Human Lispro (Humalog) 0 units SC ACHS [facility] PRN Reason: Protocol Last Admin: 10/25/16 06:37 Dose: Not Given - Labs Labs: 10/23/16 14:35 10/23/16 14:35 PT 10.6 SECONDS (9.6-11.2) 10/23/16 14:35 INR 1.02 (0.92-1.08) 10/23/16 14:35 Assessment and Plan (1) CVA (cerebral vascular accident) Status: Acute
[2016-10-26] MEDS: Insulin Lispro (humaLOG) 100 Units/ml Inj SC SCH ×4 (06:30→21:08)
[2016-10-26] MEDS: GlipiZIDE 5 mg SR Tab PO SCH (09:00)
--- NOTE | 2016-10-26 22:04 | CP.PCM.CON ---
History of Present Illness - History of Present Illness History of Present Illness: CVA 85 year old male with PMHx of DM, HTN, HLD, right CVA was seen resting comfortably at bedside regarding elongated toenails. Patient states that he has not had his nails cut in a long time. He admits to pain to his nails. He denies n/v/f/c/sob/cp. He had a recent CVA with left Hemiplegia had an INFANT NANNY called for new onset chest pain, dizziness, slurred speech, and "tongue heaviness". brand marketing coordinator said the pt was alert, oriented, and verbally responsive as of this morning. No other complaints noted. No diaphoresis, vomiting, new onset weakness observed. Pt was responsive to verbal stimuli but unable to verbalize. Nursing staff reports pt received aspirin 81mg and plavix today. Past Patient History - Past Medical History & Family History Past Medical History?: Yes - Past Social History Smoking Status: Never Smoked Alcohol: None Home Situation {Lives}: With Family (2 flights) - CARDIAC Hx Hypercholesterolemia: Yes Hx Hypertension: Yes - PULMONARY Hx Respiratory Disorders: Yes Hx Pneumonia: Yes - NEUROLOGICAL Hx Neurological Disorder: Yes HX Cerebrovascular Accident: Yes - HEENT Hx HEENT Problems: Yes Hx Cataracts: Yes - RENAL Hx Chronic Kidney Disease: Yes Other/Comment: CKD II - ENDOCRINE/METABOLIC Hx Endocrine Disorders: Yes Hx Diabetes Mellitus Type 2: Yes Other/Comment: Diabetic Neuropathy. - HEMATOLOGICAL/ONCOLOGICAL Hx Blood Disorders: No Hx AIDS: No Hx Human Immunodeficiency Virus (HIV): No - INTEGUMENTARY Hx Dermatological Problems: No - MUSCULOSKELETAL/RHEUMATOLOGICAL Hx Falls: Yes - GASTROINTESTINAL Hx Gastrointestinal Disorders: No - GENITOURINARY/GYNECOLOGICAL Hx Genitourinary Disorders: No - PSYCHIATRIC Hx Psychophysiologic Disorder: No Hx Substance Use: No - SURGICAL HISTORY Hx Surgeries: No - ANESTHESIA Hx Anesthesia: No Meds Allergies/Adverse Reactions: Allergies Allergy/AdvReac Type Severity Reaction Status Date / Time No Known Allergies Allergy Unverified 10/13/16 16:07 - Medications Medications: Current Medications Amlodipine Besylate (Norvasc) 10 mg PO DAILY [facility] Last Admin: 10/14/16 08:38 Dose: 10 mg Aspirin (Ecotrin) 81 mg PO DAILY [facility] Last Admin: 10/14/16 08:38 Dose: 81 mg Atorvastatin Calcium (Lipitor) 40 mg PO HS [facility] Last Admin: 10/13/16 21:38 Dose: 40 mg Clopidogrel Bisulfate (Plavix) 75 mg PO DAILY [facility] Last Admin: 10/14/16 08:37 Dose: 75 mg Gabapentin (Neurontin) 300 mg PO HS [facility] Glipizide (Glucotrol Xl) 5 mg PO DAILY [facility] Last Admin: 10/14/16 08:38 Dose: 5 mg Heparin Sodium (Porcine) (Heparin) 5,000 units SC Q8 [facility] PRN Reason: Protocol Last Admin: 10/14/16 13:07 Dose: 5,000 units Hydralazine HCl (Apresoline) 100 mg PO Q8 [facility] Insulin Human Lispro (Humalog) 0 units SC ACHS [facility] PRN Reason: Protocol Last Admin: 10/14/16 16:34 Dose: Not Given Tobramycin/Dexamethasone (Tobradex Opht Susp) 1 drop OU Q6 [facility] Stop: 10/19/16 18:01 NIHSS Stroke Scale 3 - Date/Time Evaluation Performed Date Performed: 10/23/16 Time Performed: 14:22 When Was NIHSS Performed: Code Stroke - How Severe is the Stroke Level of Consciousness: 0=Alert LOC to Questions: 1=One correct LOC to commands: 0=Obeys both correctly Best Gaze: 0=Normal Visual: 0=No visual loss Facial: 1=Minor asymmetry Motor Arm - Left: 2=Falls before 10 sec Motor Arm - Right: 0=No drift Motor Leg - Left: 2=Falls before 5 sec Motor Leg - Right: 0=No drift Limb Ataxia: 0=Absent Sensory: 0=Normal Best Language: 1=Mild to moderate aphasia Dysarthia: 1=Mild to moderate slurring Extinction & Inattention (Neglect): 0=Normal, no object Score: 8 Physical Exam - Constitutional Appears: Well, Non-toxic, No Acute Distress - Extremities Exam Additional comments: Vasc: DP and PT pulses palpable 2/4 b/l. Skin temperature warm to cool from proximal to distal b/l. CFT <3 seconds to all digits b/l. No edema noted to b/l LE Neuro: Gross sensation intact b/l. Derm: Nails 1-5 b/l are thickened and elongated. Webspaces 1-5 are clean, dry, intact. No open lesions noted Ortho: Pain on palpation to nails 1-5 b/l. - Neurological Exam Neurological exam: Alert, Oriented x3 - Psychiatric Exam Psychiatric exam: Normal Affect, Normal Mood Results - Vital Signs Recent Vital Signs: Last Vital Signs Temp 97.4 F L 10/14/16 16:41 Pulse 86 10/14/16 16:41 Resp 18 10/14/16 16:41 BP 171/88 H 10/14/16 16:41 Pulse Ox 98 10/14/16 16:[address] Brain: Moderate to significant chronic white matter ischemic changes. In addition, there are multiple bilateral basal nuclei lacunar type infarcts of most of which appear chronic however there is an area of ischemia in the right posterior basal ganglia that is age-indeterminate. Tiny chronic appearing brainstem lacunar type infarcts also felt to be present. Acute infarct cannot be completely excluded. Clinical correlation recommended. - Labs Labs: Laboratory Results - last 24 hr 10/13/16 10/14/16 10/14/16 21:18 05:34 11:29 POC Glucose (mg/dL) 211 H 124 H 154 H 10/14/16 16:07 POC Glucose (mg/dL) 90 Assessment & Plan - Assessment and Plan (Free Text) Assessment: Logan Zhang presents with: 1) mild dysarthria characterized by imprecise articulation precision; 2) mild deficits in short term memory; and 3) mild oral dysphagia characterized by prolonged mastication and mild oral stasis with finely chopped solids which is most likely related to missing dentition. [employer]W CHIEF asked pt to have bring dentures to facility. Reciprocal comprehension was verbally expressed. Recommend finely chopped diet with thin liquids at this time. Pt would benefit from short term skilled ST tx to improve deficits in these areas. He had toe nails trimmed by Podiatry Nails 1-5 b/l were debrided in thickness and in length with nail nippers without incident Past Patient History - Past Medical History & Family History Past Medical History?: Yes - Past Social History Smoking Status: Never Smoked Alcohol: None Home Situation {Lives}: With Family (2 flights) - CARDIAC Hx Hypercholesterolemia: Yes Hx Hypertension: Yes - PULMONARY Hx Respiratory Disorders: Yes Hx Pneumonia: Yes - NEUROLOGICAL Hx Neurological Disorder: Yes HX Cerebrovascular Accident: Yes - HEENT Hx HEENT Problems: Yes Hx Cataracts: Yes - RENAL Hx Chronic Kidney Disease: Yes Other/Comment: CKD II - ENDOCRINE/METABOLIC Hx Endocrine Disorders: Yes Hx Diabetes Mellitus Type 2: Yes Other/Comment: Diabetic Neuropathy. - HEMATOLOGICAL/ONCOLOGICAL Hx Blood Disorders: No Hx AIDS: No Hx Human Immunodeficiency Virus (HIV): No - INTEGUMENTARY Hx Dermatological Problems: No - MUSCULOSKELETAL/RHEUMATOLOGICAL Hx Falls: Yes - GASTROINTESTINAL Hx Gastrointestinal Disorders: No - GENITOURINARY/GYNECOLOGICAL Hx Genitourinary Disorders: No - PSYCHIATRIC Hx Psychophysiologic Disorder: No Hx Substance Use: No - SURGICAL HISTORY Hx Surgeries: No - ANESTHESIA Hx Anesthesia: No Meds Allergies/Adverse Reactions: Allergies Allergy/AdvReac Type Severity Reaction Status Date / Time No Known Allergies Allergy Unverified 10/13/16 16:07 - Medications Medications: Current Medications Amlodipine Besylate (Norvasc) 10 mg PO DAILY [facility] Last Admin: 10/26/16 09:00 Dose: 10 mg Aspirin (Ecotrin) 81 mg PO DAILY [facility] Last Admin: 10/26/16 09:00 Dose: 81 mg Atorvastatin Calcium (Lipitor) 40 mg PO HS [facility] Last Admin: 10/26/16 21:26 Dose: 40 mg Clopidogrel Bisulfate (Plavix) 75 mg PO DAILY [facility] Last Admin: 10/26/16 09:01 Dose: 75 mg Famotidine (Pepcid) 20 mg PO BID [facility] Last Admin: 10/26/16 16:49 Dose: 20 mg Gabapentin (Neurontin) 300 mg PO HS [facility] Last Admin: 10/26/16 21:26 Dose: 300 mg Glipizide (Glucotrol Xl) 5 mg PO DAILY [facility] Last Admin: 10/26/16 09:00 Dose: 5 mg Heparin Sodium (Porcine) (Heparin) 5,000 units SC Q8 [facility] PRN Reason: Protocol Last Admin: 10/26/16 21:26 Dose: 5,000 units Hydralazine HCl (Apresoline) 100 mg PO Q8 [facility] Last Admin: 10/26/16 21:26 Dose: 100 mg Insulin Human Lispro (Humalog) 0 units SC ACHS [facility] PRN Reason: Protocol Last Admin: 10/26/16 21:08 Dose: Not Given Physical Exam - Neurological Exam Additional comments: Mental Status: Awake, Alert, Oriented X 3 Dysarthric, non fluent non coherent Normal Memory Cranial Nerves II to XII: Left Homonymous Hemianopsia Left Facial Palsy UMNL Central Tongue Normal EOM Swallowing of finely shopped pills Motor: Left Hemiplegia, spastic Tone on the Left UE and LE Weakness of the Left UE and LE DTR 0/4 Toes down going on the Right and Up Going on the Left. Sensory: Glove and Stoke sensory Deficit peripherally More Reduced sensation on the Left side Cerebellar: Normal FNT on the Right. Results - Vital Signs Recent Vital Signs: Last Vital Signs Temp 96.9 F L 10/26/16 20:37 Pulse 75 10/26/16 21:26 Resp 20 10/26/16 20:37 BP 150/87 10/26/16 21:26 Pulse Ox 95 10/26/16 20:37 - Labs Result Diagrams: 10/23/16 14:35 10/23/16 14:35 Labs: Laboratory Results - last 24 hr 10/26/16 10/26/16 10/26/16 05:20 11:04 16:02 POC Glucose (mg/dL) 104 205 H 136 H 10/26/16 21:08 POC Glucose (mg/dL) 155 H Assessment & Plan (1) CVA (cerebral vascular accident) Status: Acute (2) Chest pain Status: Acute (3) Vertigo Assessment and Plan: R/O Cerebrovascular Insufficiency as a cause R/O BPPV Status: Acute (4) Seizure as late effect of cerebrovascular accident (CVA) Assessment and Plan: R/O Seizures as result of the CVA causing a focus Status: Acute (5) BPPV (benign paroxysmal positional vertigo) Status: Acute
--- NOTE | 2016-10-26 23:23 | CP.PCM.PN ---
Subjective - Date & Time of Evaluation Date of Evaluation: 10/26/16 Time of Evaluation: 15:30 Objective - Vital Signs/Intake and Output Vital Signs (last 24 hours): Temp Pulse Resp BP Pulse Ox 96.9 F L 75 20 150/87 95 10/26/16 20:37 10/26/16 21:26 10/26/16 20:37 10/26/16 21:26 10/26/16 20:37 - Medications Medications: Current Medications Amlodipine Besylate (Norvasc) 10 mg PO DAILY [facility] Last Admin: 10/26/16 09:00 Dose: 10 mg Aspirin (Ecotrin) 81 mg PO DAILY [facility] Last Admin: 10/26/16 09:00 Dose: 81 mg Atorvastatin Calcium (Lipitor) 40 mg PO HS [facility] Last Admin: 10/26/16 21:26 Dose: 40 mg Clopidogrel Bisulfate (Plavix) 75 mg PO DAILY [facility] Last Admin: 10/26/16 09:01 Dose: 75 mg Famotidine (Pepcid) 20 mg PO BID [facility] Last Admin: 10/26/16 16:49 Dose: 20 mg Gabapentin (Neurontin) 300 mg PO HS [facility] Last Admin: 10/26/16 21:26 Dose: 300 mg Glipizide (Glucotrol Xl) 5 mg PO DAILY [facility] Last Admin: 10/26/16 09:00 Dose: 5 mg Heparin Sodium (Porcine) (Heparin) 5,000 units SC Q8 [facility] PRN Reason: Protocol Last Admin: 10/26/16 21:26 Dose: 5,000 units Hydralazine HCl (Apresoline) 100 mg PO Q8 [facility] Last Admin: 10/26/16 21:26 Dose: 100 mg Insulin Human Lispro (Humalog) 0 units SC ACHS [facility] PRN Reason: Protocol Last Admin: 10/26/16 21:08 Dose: Not Given - Labs Labs: 10/23/16 14:35 10/23/16 14:35 PT 10.6 SECONDS (9.6-11.2) 10/23/16 14:35 INR 1.02 (0.92-1.08) 10/23/16 14:35 Assessment and Plan (1) CVA (cerebral vascular accident) Status: Acute
[2016-10-27] MEDS: Insulin Lispro (humaLOG) 100 Units/ml Inj SC SCH ×4 (07:30→21:50)
[2016-10-27] MEDS: GlipiZIDE 5 mg SR Tab PO SCH (09:03)
--- NOTE | 2016-10-27 10:37 | CP.PCM.PN ---
Subjective - Date & Time of Evaluation Date of Evaluation: 10/27/16 Time of Evaluation: 10:35 Objective - Vital Signs/Intake and Output Vital Signs (last 24 hours): Temp Pulse Resp BP Pulse Ox 97.3 F L 80 20 155/66 H 96 10/27/16 08:57 10/27/16 08:57 10/27/16 08:57 10/27/16 08:57 10/27/16 08:57 - Medications Medications: Current Medications Amlodipine Besylate (Norvasc) 10 mg PO DAILY [facility] Last Admin: 10/27/16 09:03 Dose: 10 mg Aspirin (Ecotrin) 81 mg PO DAILY [facility] Last Admin: 10/27/16 09:03 Dose: 81 mg Atorvastatin Calcium (Lipitor) 40 mg PO HS [facility] Last Admin: 10/26/16 21:26 Dose: 40 mg Clopidogrel Bisulfate (Plavix) 75 mg PO DAILY [facility] Last Admin: 10/27/16 09:04 Dose: 75 mg Famotidine (Pepcid) 20 mg PO BID [facility] Last Admin: 10/27/16 09:04 Dose: 20 mg Gabapentin (Neurontin) 300 mg PO HS [facility] Last Admin: 10/26/16 21:26 Dose: 300 mg Glipizide (Glucotrol Xl) 5 mg PO DAILY [facility] Last Admin: 10/27/16 09:03 Dose: 5 mg Heparin Sodium (Porcine) (Heparin) 5,000 units SC Q8 [facility] PRN Reason: Protocol Last Admin: 10/27/16 06:30 Dose: 5,000 units Hydralazine HCl (Apresoline) 100 mg PO Q8 [facility] Last Admin: 10/27/16 05:30 Dose: 100 mg Insulin Human Lispro (Humalog) 0 units SC ACHS [facility] PRN Reason: Protocol Last Admin: 10/27/16 07:30 Dose: Not Given - Labs Labs: 10/23/16 14:35 10/23/16 14:35 PT 10.6 SECONDS (9.6-11.2) 10/23/16 14:35 INR 1.02 (0.92-1.08) 10/23/16 14:35 Assessment and Plan (1) CVA (cerebral vascular accident) Status: Acute
--- NOTE | 2016-10-27 13:21 | PSY.TMCNF ---
Nursing - Vital Signs Vital Signs (Last 8 hours): Vital Signs 10/27/16 08:57 Temperature 97.3 F L Pulse Rate 80 Respiratory 20 Rate Blood Pressure 155/66 H O2 Sat by Pulse 96 Oximetry Pain: 0 - Precautions: Precautions: Fall Prevention, Aspiration - Medications/Other Issues Comment: Pt at moderate nutritional risk. Goals:Previous Goals: 1. Pt will consume 75-100% of his meals (met, continue). 2. Pt will maintain blood sugar levels between 70-180 mg/dl (partially met, continue). Follow-up due on 2016 - Consults Comment: Dr. Gomes, Dr. Zamora - Toileting Toileting: Maximal Assistance - Bladder Management Bladder Pattern: Normal Voiding Method: Toilet, Urinal - Bowel Management Frequency of Accidents: 0 - Transfers Transfers: Moderate Assistance - ADL's ADL's: Maximal Assistance - Patient/Family Teaching Comments: CARE POST CVA AND SAFETY PRECAUTIONS - Goals/Time Frame Comments: PER MULTIDISCIPLINARY CARE PLAN GOALS Physical Therapy - Bed Mobility Bed Mobility: Verbal Cues, Minimal Assistance Comment: -min A for bed mobility on flat mat surface with step by step cueing - Transfers Wheelchair to Mat: Verbal Cues, Minimal Assistance, Moderate Assistance Sit to Stand: Verbal Cues, Minimal Assistance, Moderate Assistance Comment: -min A for sit to/from stand with use of HAND FRAME SURGICAL ELASTIC KNITTER upon standing; mod A for sitting due to impaired safety and reduced eccentric control. -mod A for SPT, patient more unsafe at this time then previously and requires cues to improve control and safety and wait for therapist assistance - Ambulation Level of Assistance: Moderate Assistance Distance (ft.): 100 Assistive Devices: N/A Orthoses: n/a Comment: -100 feet with HAND FRAME SURGICAL ELASTIC KNITTER on R and PT on left side, impaired reciprocal pattern, FWB BLE, mod A. -patient has ability to progress LLE but as he fatigues does so with adductor strength with limited motion at the ankle; patient able to better stabilize during stance phase when he is attending well to the task but if he is distracted or tired requires PT assistance to stabilize knee. -assistance for weight shifting. -as patient gets frustrated he just asks to sit down - Stair Negotiation Stairs: Level of Assistance: Moderate Assistance, Maximum Assistance Stairs: Assistive Devices: Right Handrail Comment: prior to interrupted stay...1 flight 8 inch steps, mod to max A, SBA of 2nd person for safety, step to pattern with cues for sequencing - Standing Balance Static Stand: Minimal Assistance Dynamic Stand: Moderate Assistance, Maximal Assistance - Pain Pain (assessed during therapy session): 4 Comment: L wrist - Insight/Carryover Insight/Carryover: Fair - Patient/Family Education Comment: -safety, therapy schedule, POC, therapy goals, postural control, transfers, command following, use of call rosario, mobility, stroke recovery - Assessment/Plan Assessment: Mr. Zhang returned to acute rehabilitation s/p change in medical status on 10/24/16. Patient presents with no change in motor control (with exception of mild decrease due to lack of activity over weekend/Wednesday). Patient remains with L sided weakness and impaired postural control. PT does not change in patient's orientation, command following, attention and memory. Patient also presents with more labile and flat affect with periods of crying. PT recommends continued skilled PT to maximize safety and independence with all mobility s/p CVA. PT recommends discharge to [facility] to continue addressing skilled rehabilitation needs s/p CVA. LIMITATIONS: slow progress, lack of support, emotional changes with increase in crying episodes - Goals Timeframe: 7 days Goals: asc/desc 1 flight of steps with single rail with mod A. min A with WBQC. -ambulate 100 feet with WBQC with min A. -rolling R with CG. -rolling L with CS. -supine to/from sit with CGA - Provider Therapist: Anita Weems PT, DPT License Number: [id number] Occupational Therapy - Arousal/Attention/Orientation Patient Orientation: Person, Place, Time, Appropriate to Age - ADL/IADL Self Feeding: Supervision, Set-up Help Grooming: Verbal Cues, Set-up Help, Contact Guard Dressing-Upper Extremity: Moderate Assistance Dressing-Lower Extremity: Maximum Assistance Comment: To practice bathing tasks in future sessions. - Sitting Balance Static Sitting: Contact Guard Assist Dynamic Sitting: Minimal Assistance - Transfers Wheelchair to Bed Transfers: Moderate Assistance Toilet Transfers: Moderate Assistance Comment: Pt required increased cues for sequencing, impulsivity and motor planning. - Wheelchair Management Level of Assistance: Maximum Assistance Distance (ft.): 10 - Upper Extremity Status Right Upper Extremity Comment: PROM WFL, AROM WFL Left Upper Extremity Comment: PROM WFL; AROM impaired t/o LUE. L shoulder flexion 1/5; shldr ER, abd, ext 2-/5. L scap 0/5 retraction. L elbow flex & ext 2-/5. L pronation 2-/5. L supination 0/5. L wrist ext/flex and finger flex/ext 1/5 - Pain Pain (assessed during therapy session): 4 Comment: L wrist - Insight/Carryover Insight/Carryover: Fair - Patient/Family Education Comment: -safety, therapy schedule, POC, therapy goals, postural control, transfers, command following, use of call rosario, mobility, stroke recovery - Assessment/Plan Assessment: Mr. Zhang returned to acute rehabilitation s/p change in medical status on 10/24/16. Patient presents with no change in motor control (with exception of mild decrease due to lack of activity over weekend/Wednesday). Patient remains with L sided weakness and impaired postural control. PT does not change in patient's orientation, command following, attention and memory. Patient also presents with more labile and flat affect with periods of crying. PT recommends continued skilled PT to maximize safety and independence with all mobility s/p CVA. PT recommends discharge to [facility] to continue addressing skilled rehabilitation needs s/p CVA. LIMITATIONS: slow progress, lack of support, emotional changes with increase in crying episodes - Goals Timeframe: 7 days Goals: asc/desc 1 flight of steps with single rail with mod A. min A with WBQC. -ambulate 100 feet with WBQC with min A. -rolling R with CG. -rolling L with CS. -supine to/from sit with CGA - Provider Therapist: kenneth rothman License Number: [id number] Speech Therapy - Consult Information Patient on Program: Yes Medical Diagnosis: CVA Treatment Diagnosis: 1.) mild memory deficits. 2.) mild dysarthria. 3.) mild dysphagia - Assessment Memory Impairment: Mild Speech/Articulation Impairment: Mild Dysphagia/Swallowing Impairment: Mild Comment: finely chopped/thin liquids - Plan Assessment: Mr. Zhang returned to acute rehabilitation s/p change in medical status on 10/24/16. Patient presents with no change in motor control (with exception of mild decrease due to lack of activity over /Wednesday). Patient remains with L sided weakness and impaired postural control. PT does not change in patient's orientation, command following, attention and memory. Patient also presents with more labile and flat affect with periods of crying. PT recommends continued skilled PT to maximize safety and independence with all mobility s/p CVA. PT recommends discharge to [facility] to continue addressing skilled rehabilitation needs s/p CVA. LIMITATIONS: slow progress, lack of support, emotional changes with increase in crying episodes - Provider Therapist: Loretta Freitas License Number: [id number] Recreational Therapy - Participation Participation: Participates in Individual and/or Group Sessions - Attendance Attendance: 3-5 times per week - Activities Leisure Activities: Cards and Games - Socialization Level of Socialization: Initiates/interacts freely with care givers and peer - Diversional Time Diversional Time: enjoys [employer], games - Assessment Assessment/Plan: Mr. Zhang returned to acute rehabilitation s/p change in medical status on 10/24/16. Patient presents with no change in motor control ( with exception of mild decrease due to lack of activity over weekend/Wednesday). Patient remains with L sided weakness and impaired postural control. PT does not change in patient's orientation, command following, attention and memory. Patient also presents with more labile and flat affect with periods of crying. PT recommends continued skilled PT to maximize safety and independence with all mobility s/p CVA. PT recommends discharge to [facility] to continue addressing skilled rehabilitation needs s/p CVA. LIMITATIONS: slow progress, lack of support, emotional changes with increase in crying episodes - Provider Therapist: Amada Joya, DIRECTOR [employer] #[id number] Nutrition - Current Diet Current Diet/ Supplement/ Feedings: Moderate consistent CHO 2 gram Na Mech altered(finely chopped) thin liquids - Appetite Percent Meal Consumed: 75-100% - Comments Comments: CARE POST CVA AND SAFETY PRECAUTIONS - Assessment/Goals/Time Frame Assessment/Goals/Time Frame: Pt at moderate nutritional risk. Goals:Previous Goals: 1. Pt will consume 75-100% of his meals (met, continue). 2. Pt will maintain blood sugar levels between 70-180 mg/dl (partially met, continue). Follow-up due on 10/28/2016 - Provider Provider: Anna Richter RD Case Management - Psychosocial Assessment Support Systems: Patient's spouse Elsa Zhang- [phone] Psychological Interventions/Needs: Patient is alert with mild memory deficits Discharge Concerns: Patient with 22 steps to negotiate at home, requiring min- mod A for bed mobility, gait and transfers and limited support during the day Patient/Family Meeting: CM met with patient and rehab team Intervention/Goal/Outcome:: 1.Goal: 24 hour supervision. 2. Plan: DEL as patient with 22 steps to negotiate at home and limited support during the day. 3. Tentative discharge date: 11/02/2016. 4. CM to follow for most appropriate discharge disposition and support. - Discharge Plan Discharge Plan: Subacute care - Provider Provider: VALENTINE Barbosa, [place] License Number: [id number] Rehabilitation Plan - Treatment Plan Treatment Plan: Physical Therapy, Occupational Therapy, Speech, Dietary, Patient /Family Education - Discharge Plan Estimated Date of Discharge: 11/02/16 Discharge to: Subacute
--- NOTE | 2016-10-27 14:07 | CP.PCM.PN ---
Subjective - Date & Time of Evaluation Date of Evaluation: 10/27/16 Time of Evaluation: 14:06 - Subjective Subjective: Patient seen in room and doing ok he has plateaued to some degree, but is still motivated and understands that he is not able to get home given the large number or steps present in his house denies any complaints outside of the weakness continue therapies set for d/c to DEL 11/02/16 patient understands Objective - Vital Signs/Intake and Output Vital Signs (last 24 hours): Temp Pulse Resp BP Pulse Ox 97.3 F L 82 20 179/75 H 96 10/27/16 08:57 10/27/16 13:34 10/27/16 08:57 10/27/16 13:34 10/27/16 08:57 - Medications Medications: Current Medications Amlodipine Besylate (Norvasc) 10 mg PO DAILY [facility] Last Admin: 10/27/16 09:03 Dose: 10 mg Aspirin (Ecotrin) 81 mg PO DAILY [facility] Last Admin: 10/27/16 09:03 Dose: 81 mg Atorvastatin Calcium (Lipitor) 40 mg PO HS [facility] Last Admin: 10/26/16 21:26 Dose: 40 mg Clopidogrel Bisulfate (Plavix) 75 mg PO DAILY [facility] Last Admin: 10/27/16 09:04 Dose: 75 mg Famotidine (Pepcid) 20 mg PO BID [facility] Last Admin: 10/27/16 09:04 Dose: 20 mg Gabapentin (Neurontin) 300 mg PO HS [facility] Last Admin: 10/26/16 21:26 Dose: 300 mg Glipizide (Glucotrol Xl) 5 mg PO DAILY [facility] Last Admin: 10/27/16 09:03 Dose: 5 mg Heparin Sodium (Porcine) (Heparin) 5,000 units SC Q8 [facility] PRN Reason: Protocol Last Admin: 10/27/16 13:33 Dose: 5,000 units Hydralazine HCl (Apresoline) 100 mg PO Q8 [facility] Last Admin: 10/27/16 13:34 Dose: 100 mg Insulin Human Lispro (Humalog) 0 units SC ACHS [facility] PRN Reason: Protocol Last Admin: 10/27/16 11:45 Dose: 1 unit - Labs Labs: 10/23/16 14:35 10/23/16 14:35 PT 10.6 SECONDS (9.6-11.2) 10/23/16 14:35 INR 1.02 (0.92-1.08) 10/23/16 14:35
--- NOTE | 2016-10-27 14:15 | CP.PCM.CON ---
History of Present Illness - History of Present Illness History of Present Illness: psychiatry consult seen with la who provided khmer to persian interpretation reason: tearfulness ordered by: dr. swain cc: i am sad now hpi: 85 yo male, living with his . he has no prior psychiatric history. 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 he has become more tearful and anxious. he states he does not want to live "like this"- meaning with the loss of his ability to function. he does not have active thoughts to harm himself. he is skeptical, but with some hope that he will regain some function with continued PT/OT treatment. he denies any a/v hallucinations. there has not been any confusion or agitation. past psych: none. social: worked as a solo truck driver, retired. . family is supportive. subtance use: denies abuse: denies medical: per dr swain mse: alert, oriented x 3. mood is anxious/sad. affect constricted/congruent. tp are linear. pt reports suicidal thoughts, but no plan and no intent. he denies hi. he denies any auditory/visual hallucinations. he has intact memory. fair i/j assessment: adjustment disorder with mixed anxiety/depression recommendation: will start low dose zoloft to help with mood symptoms can f/u with individual therapy/psychiatry as an outpatient will continue to follow at this point not appropriate for inpatient hospitalization. Past Patient History - Past Medical History & Family History Past Medical History?: Yes - Past Social History Smoking Status: Never Smoked Alcohol: None Home Situation {Lives}: With Family (2 flights) - CARDIAC Hx Hypercholesterolemia: Yes Hx Hypertension: Yes - PULMONARY Hx Respiratory Disorders: Yes Hx Pneumonia: Yes - NEUROLOGICAL Hx Neurological Disorder: Yes HX Cerebrovascular Accident: Yes - HEENT Hx HEENT Problems: Yes Hx Cataracts: Yes - RENAL Hx Chronic Kidney Disease: Yes Other/Comment: CKD II - ENDOCRINE/METABOLIC Hx Endocrine Disorders: Yes Hx Diabetes Mellitus Type 2: Yes Other/Comment: Diabetic Neuropathy. - HEMATOLOGICAL/ONCOLOGICAL Hx Blood Disorders: No Hx AIDS: No Hx Human Immunodeficiency Virus (HIV): No - INTEGUMENTARY Hx Dermatological Problems: No - MUSCULOSKELETAL/RHEUMATOLOGICAL Hx Falls: Yes - GASTROINTESTINAL Hx Gastrointestinal Disorders: No - GENITOURINARY/GYNECOLOGICAL Hx Genitourinary Disorders: No - PSYCHIATRIC Hx Psychophysiologic Disorder: No Hx Substance Use: No - SURGICAL HISTORY Hx Surgeries: No - ANESTHESIA Hx Anesthesia: No Meds Allergies/Adverse Reactions: Allergies Allergy/AdvReac Type Severity Reaction Status Date / Time No Known Allergies Allergy Unverified 10/13/16 16:07 - Medications Medications: Current Medications Amlodipine Besylate (Norvasc) 10 mg PO DAILY [facility] Last Admin: 10/27/16 09:03 Dose: 10 mg Aspirin (Ecotrin) 81 mg PO DAILY [facility] Last Admin: 10/27/16 09:03 Dose: 81 mg Atorvastatin Calcium (Lipitor) 40 mg PO HS [facility] Last Admin: 10/26/16 21:26 Dose: 40 mg Clopidogrel Bisulfate (Plavix) 75 mg PO DAILY [facility] Last Admin: 10/27/16 09:04 Dose: 75 mg Famotidine (Pepcid) 20 mg PO BID [facility] Last Admin: 10/27/16 09:04 Dose: 20 mg Gabapentin (Neurontin) 300 mg PO HS [facility] Last Admin: 10/26/16 21:26 Dose: 300 mg Glipizide (Glucotrol Xl) 5 mg PO DAILY [facility] Last Admin: 10/27/16 09:03 Dose: 5 mg Heparin Sodium (Porcine) (Heparin) 5,000 units SC Q8 [facility] PRN Reason: Protocol Last Admin: 10/27/16 13:33 Dose: 5,000 units Hydralazine HCl (Apresoline) 100 mg PO Q8 [facility] Last Admin: 10/27/16 13:34 Dose: 100 mg Insulin Human Lispro (Humalog) 0 units SC ACHS [facility] PRN Reason: Protocol Last Admin: 10/27/16 11:45 Dose: 1 unit Sertraline HCl (Zoloft) 12.5 mg PO DAILY [facility] Results - Vital Signs Recent Vital Signs: Last Vital Signs Temp 97.3 F L 10/27/16 14:06 Pulse 82 10/27/16 14:06 Resp 20 10/27/16 14:06 BP 179/75 H 10/27/16 14:06 Pulse Ox 96 10/27/16 08:57 - Labs Result Diagrams: 10/23/16 14:35 10/23/16 14:35 Labs: Laboratory Results - last 24 hr 10/26/16 10/26/16 10/27/16 16:02 21:08 05:40 POC Glucose (mg/dL) 136 H 155 H Vitamin B12 572 25-OH Vitamin D Total 10/27/16 10/27/16 10/27/16 05:40 06:28 11:50 POC Glucose (mg/dL) 95 177 H Vitamin B12 25-OH Vitamin D Total 18.2 L
[2016-10-28] MEDS: Insulin Lispro (humaLOG) 100 Units/ml Inj SC SCH ×4 (06:39→21:37)
[2016-10-28] MEDS: GlipiZIDE 5 mg SR Tab PO SCH (08:54)
--- NOTE | 2016-10-28 10:54 | CP.PCM.PN ---
Subjective - Date & Time of Evaluation Date of Evaluation: 10/28/16 Time of Evaluation: 10:00 Objective - Vital Signs/Intake and Output Vital Signs (last 24 hours): Temp Pulse Resp BP Pulse Ox 97.8 F 77 19 149/71 96 10/28/16 08:31 10/28/16 08:54 10/28/16 08:31 10/28/16 08:54 10/28/16 08:31 - Medications Medications: Current Medications Acetaminophen (Tylenol 325mg Tab) 650 mg PO Q6 PRN PRN Reason: PAIN SCALE 4-10 Amlodipine Besylate (Norvasc) 10 mg PO DAILY [facility] Last Admin: 10/28/16 08:54 Dose: 10 mg Aspirin (Ecotrin) 81 mg PO DAILY [facility] Last Admin: 10/28/16 08:54 Dose: 81 mg Atorvastatin Calcium (Lipitor) 40 mg PO HS [facility] Last Admin: 10/27/16 21:49 Dose: 40 mg Clopidogrel Bisulfate (Plavix) 75 mg PO DAILY [facility] Last Admin: 10/28/16 08:55 Dose: 75 mg Famotidine (Pepcid) 20 mg PO BID [facility] Last Admin: 10/28/16 08:54 Dose: 20 mg Gabapentin (Neurontin) 300 mg PO HS [facility] Last Admin: 10/27/16 21:49 Dose: 300 mg Glipizide (Glucotrol Xl) 5 mg PO DAILY [facility] Last Admin: 10/28/16 08:54 Dose: 5 mg Heparin Sodium (Porcine) (Heparin) 5,000 units SC Q8 [facility] PRN Reason: Protocol Last Admin: 10/28/16 06:18 Dose: 5,000 units Hydralazine HCl (Apresoline) 100 mg PO Q8 [facility] Last Admin: 10/28/16 06:17 Dose: 100 mg Insulin Human Lispro (Humalog) 0 units SC ACHS [facility] PRN Reason: Protocol Last Admin: 10/28/16 06:39 Dose: Not Given Sertraline HCl (Zoloft) 12.5 mg PO DAILY [facility] Last Admin: 10/28/16 08:56 Dose: 12.5 mg - Labs Labs: 10/23/16 14:35 10/23/16 14:35 PT 10.6 SECONDS (9.6-11.2) 10/23/16 14:35 INR 1.02 (0.92-1.08) 10/23/16 14:35 Assessment and Plan (1) CVA (cerebral vascular accident) Status: Acute
--- NOTE | 2016-10-28 17:31 | CP.PCM.PN ---
Subjective - Date & Time of Evaluation Date of Evaluation: 10/28/16 Time of Evaluation: 17:30 - Subjective Subjective: Patient seen with family ambulating 100' with min A denies any complaints outside of weakness continue current care Objective - Vital Signs/Intake and Output Vital Signs (last 24 hours): Temp Pulse Resp BP Pulse Ox 97.8 F 79 19 167/87 H 96 10/28/16 08:31 10/28/16 14:33 10/28/16 08:31 10/28/16 14:33 10/28/16 08:31 - Medications Medications: Current Medications Acetaminophen (Tylenol 325mg Tab) 650 mg PO Q6 PRN PRN Reason: PAIN SCALE 4-10 Last Admin: 10/28/16 11:34 Dose: 650 mg Amlodipine Besylate (Norvasc) 10 mg PO DAILY [facility] Last Admin: 10/28/16 08:54 Dose: 10 mg Aspirin (Ecotrin) 81 mg PO DAILY [facility] Last Admin: 10/28/16 08:54 Dose: 81 mg Atorvastatin Calcium (Lipitor) 40 mg PO HS [facility] Last Admin: 10/27/16 21:49 Dose: 40 mg Clopidogrel Bisulfate (Plavix) 75 mg PO DAILY [facility] Last Admin: 10/28/16 08:55 Dose: 75 mg Famotidine (Pepcid) 20 mg PO BID [facility] Last Admin: 10/28/16 17:22 Dose: 20 mg Gabapentin (Neurontin) 300 mg PO HS [facility] Last Admin: 10/27/16 21:49 Dose: 300 mg Glipizide (Glucotrol Xl) 5 mg PO DAILY [facility] Last Admin: 10/28/16 08:54 Dose: 5 mg Heparin Sodium (Porcine) (Heparin) 5,000 units SC Q8 [facility] PRN Reason: Protocol Last Admin: 10/28/16 14:34 Dose: 5,000 units Hydralazine HCl (Apresoline) 100 mg PO Q8 [facility] Last Admin: 10/28/16 14:33 Dose: 100 mg Insulin Human Lispro (Humalog) 0 units SC ACHS [facility] PRN Reason: Protocol Last Admin: 10/28/16 17:21 Dose: 1 unit Sertraline HCl (Zoloft) 12.5 mg PO DAILY [facility] Last Admin: 10/28/16 08:56 Dose: 12.5 mg - Labs Labs: 10/23/16 14:35 10/23/16 14:35 PT 10.6 SECONDS (9.6-11.2) 10/23/16 14:35 INR 1.02 (0.92-1.08) 10/23/16 14:35
--- NOTE | 2016-10-29 00:10 | CP.PCM.PN ---
Subjective - Date & Time of Evaluation Date of Evaluation: 10/28/16 Time of Evaluation: 20:55 - Subjective Subjective: Patient is stable, no complications, receiving Rehab, showing some improvement of speech as well as of his left hemiparesis. Low Vitamin D. He is given replacement of Vitamin D and Oscal. Objective - Vital Signs/Intake and Output Vital Signs (last 24 hours): Temp Pulse Resp BP Pulse Ox 97.8 F 78 19 176/91 H 96 10/28/16 08:31 10/28/16 21:21 10/28/16 08:31 10/28/16 21:21 10/28/16 08:31 - Medications Medications: Current Medications Acetaminophen (Tylenol 325mg Tab) 650 mg PO Q6 PRN PRN Reason: PAIN SCALE 4-10 Last Admin: 10/28/16 11:34 Dose: 650 mg Amlodipine Besylate (Norvasc) 10 mg PO DAILY [facility] Last Admin: 10/28/16 08:54 Dose: 10 mg Aspirin (Ecotrin) 81 mg PO DAILY [facility] Last Admin: 10/28/16 08:54 Dose: 81 mg Atorvastatin Calcium (Lipitor) 40 mg PO HS [facility] Last Admin: 10/28/16 21:20 Dose: 40 mg Calcium/Vitamin D (Oyster Shell Calcium/Vitamin D 500 Mg-200 Iu) 1 tab PO BIDWM [facility] Clopidogrel Bisulfate (Plavix) 75 mg PO DAILY [facility] Last Admin: 10/28/16 08:55 Dose: 75 mg Ergocalciferol (Drisdol 50,000 Intl Units Cap) 1 cap PO Q7D [facility] Stop: 01/14/17 09:01 Famotidine (Pepcid) 20 mg PO BID [facility] Last Admin: 10/28/16 17:22 Dose: 20 mg Gabapentin (Neurontin) 300 mg PO HS [facility] Last Admin: 10/28/16 21:21 Dose: 300 mg Glipizide (Glucotrol Xl) 5 mg PO DAILY [facility] Last Admin: 10/28/16 08:54 Dose: 5 mg Heparin Sodium (Porcine) (Heparin) 5,000 units SC Q8 [facility] PRN Reason: Protocol Last Admin: 10/28/16 21:23 Dose: 5,000 units Hydralazine HCl (Apresoline) 100 mg PO Q8 [facility] Last Admin: 10/28/16 21:21 Dose: 100 mg Insulin Human Lispro (Humalog) 0 units SC ACHS [facility] PRN Reason: Protocol Last Admin: 10/28/16 21:37 Dose: Not Given Sertraline HCl (Zoloft) 12.5 mg PO DAILY [facility] Last Admin: 10/28/16 08:56 Dose: 12.5 mg - Labs Labs: 10/23/16 14:35 10/23/16 14:35 PT 10.6 SECONDS (9.6-11.2) 10/23/16 14:35 INR 1.02 (0.92-1.08) 10/23/16 14:35 Assessment and Plan (1) Chest pain Status: Acute (2) Vertigo Status: Acute (3) CVA (cerebral vascular accident) Status: Acute (4) Seizure as late effect of cerebrovascular accident (CVA) Status: Acute (5) BPPV (benign paroxysmal positional vertigo) Status: Acute
[2016-10-29] MEDS: Insulin Lispro (humaLOG) 100 Units/ml Inj SC SCH ×4 (06:55→21:34)
[2016-10-29] MEDS: Calcium-Vit D 500 mg-200 Units Tab UD PO SCH ×2 (08:45→17:43)
[2016-10-29] MEDS: GlipiZIDE 5 mg SR Tab PO SCH (08:45)
[2016-10-29] MEDS ORDERED: Ergocalciferol 50,000 Intl Units Cap PO SCH (09:00)
--- NOTE | 2016-10-29 23:39 | CP.PCM.PN ---
Objective - Vital Signs/Intake and Output Vital Signs (last 24 hours): Temp Pulse Resp BP Pulse Ox 97.6 F 76 20 152/66 H 96 10/29/16 20:44 10/29/16 21:32 10/29/16 20:44 10/29/16 21:32 10/29/16 20:44 - Medications Medications: Current Medications Acetaminophen (Tylenol 325mg Tab) 650 mg PO Q6 PRN PRN Reason: PAIN SCALE 4-10 Last Admin: 10/28/16 11:34 Dose: 650 mg Amlodipine Besylate (Norvasc) 10 mg PO DAILY [facility] Last Admin: 10/29/16 08:46 Dose: 10 mg Aspirin (Ecotrin) 81 mg PO DAILY [facility] Last Admin: 10/29/16 08:45 Dose: 81 mg Atorvastatin Calcium (Lipitor) 40 mg PO HS [facility] Last Admin: 10/29/16 21:33 Dose: 40 mg Calcium/Vitamin D (Oyster Shell Calcium/Vitamin D 500 Mg-200 Iu) 1 tab PO BIDWM [facility] Last Admin: 10/29/16 17:43 Dose: 1 tab Clopidogrel Bisulfate (Plavix) 75 mg PO DAILY [facility] Last Admin: 10/29/16 08:45 Dose: 75 mg Ergocalciferol (Drisdol 50,000 Intl Units Cap) 1 cap PO Q7D [facility] Stop: 01/14/17 09:01 Last Admin: 10/29/16 08:45 Dose: 1 cap Famotidine (Pepcid) 20 mg PO BID [facility] Last Admin: 10/29/16 17:43 Dose: 20 mg Gabapentin (Neurontin) 300 mg PO HS [facility] Last Admin: 10/29/16 21:33 Dose: 300 mg Glipizide (Glucotrol Xl) 5 mg PO DAILY [facility] Last Admin: 10/29/16 08:45 Dose: 5 mg Heparin Sodium (Porcine) (Heparin) 5,000 units SC Q8 [facility] PRN Reason: Protocol Last Admin: 10/29/16 21:33 Dose: 5,000 units Hydralazine HCl (Apresoline) 100 mg PO Q8 [facility] Last Admin: 10/29/16 21:32 Dose: 100 mg Insulin Human Lispro (Humalog) 0 units SC ACHS [facility] PRN Reason: Protocol Last Admin: 10/29/16 21:34 Dose: Not Given Sertraline HCl (Zoloft) 12.5 mg PO DAILY [facility] Last Admin: 10/29/16 08:46 Dose: 12.5 mg - Labs Labs: 10/23/16 14:35 10/23/16 14:35 PT 10.6 SECONDS (9.6-11.2) 10/23/16 14:35 INR 1.02 (0.92-1.08) 10/23/16 14:35 Assessment and Plan (1) CVA (cerebral vascular accident) Status: Acute
[2016-10-30] MEDS: Insulin Lispro (humaLOG) 100 Units/ml Inj SC SCH ×4 (06:56→21:21)
[2016-10-30 08:19] LABS: CALCIUM 9.4 mg/dL (8.4-10.2); POTASSIUM 4.4 MMOL/L (3.6-5.0)
[2016-10-30] MEDS: GlipiZIDE 5 mg SR Tab PO SCH (08:44)
[2016-10-30] MEDS: Calcium-Vit D 500 mg-200 Units Tab UD PO SCH ×2 (08:44→16:32)
[2016-10-31] MEDS: Insulin Lispro (humaLOG) 100 Units/ml Inj SC SCH ×4 (06:34→21:37)
[2016-10-31] MEDS: Calcium-Vit D 500 mg-200 Units Tab UD PO SCH ×2 (08:05→17:16)
[2016-10-31] MEDS: GlipiZIDE 5 mg SR Tab PO SCH (08:05)
--- NOTE | 2016-10-31 17:28 | CP.PCM.PN ---
Subjective - Date & Time of Evaluation Date of Evaluation: 10/31/16 Time of Evaluation: 16:45 Objective - Vital Signs/Intake and Output Vital Signs (last 24 hours): Temp Pulse Resp BP Pulse Ox 97.7 F 64 20 139/73 100 10/31/16 07:31 10/31/16 14:44 10/31/16 07:31 10/31/16 14:44 10/31/16 07:31 - Medications Medications: Current Medications Acetaminophen (Tylenol 325mg Tab) 650 mg PO Q6 PRN PRN Reason: PAIN SCALE 4-10 Last Admin: 10/28/16 11:34 Dose: 650 mg Amlodipine Besylate (Norvasc) 10 mg PO DAILY [facility] Last Admin: 10/31/16 08:06 Dose: 10 mg Aspirin (Ecotrin) 81 mg PO DAILY [facility] Last Admin: 10/31/16 08:05 Dose: 81 mg Atorvastatin Calcium (Lipitor) 40 mg PO HS [facility] Last Admin: 10/30/16 21:10 Dose: 40 mg Calcium/Vitamin D (Oyster Shell Calcium/Vitamin D 500 Mg-200 Iu) 1 tab PO BIDWM [facility] Last Admin: 10/31/16 17:16 Dose: 1 tab Clopidogrel Bisulfate (Plavix) 75 mg PO DAILY [facility] Last Admin: 10/31/16 08:06 Dose: 75 mg Ergocalciferol (Drisdol 50,000 Intl Units Cap) 1 cap PO Q7D [facility] Stop: 01/14/17 09:01 Last Admin: 10/29/16 08:45 Dose: 1 cap Famotidine (Pepcid) 20 mg PO BID [facility] Last Admin: 10/31/16 17:16 Dose: 20 mg Gabapentin (Neurontin) 300 mg PO HS [facility] Last Admin: 10/30/16 21:10 Dose: 300 mg Glipizide (Glucotrol Xl) 5 mg PO DAILY [facility] Last Admin: 10/31/16 08:05 Dose: 5 mg Heparin Sodium (Porcine) (Heparin) 5,000 units SC Q8 [facility] PRN Reason: Protocol Last Admin: 10/31/16 14:45 Dose: 5,000 units Hydralazine HCl (Apresoline) 100 mg PO Q8 [facility] Last Admin: 10/31/16 14:44 Dose: 100 mg Insulin Human Lispro (Humalog) 0 units SC ACHS [facility] PRN Reason: Protocol Last Admin: 10/31/16 16:11 Dose: Not Given Sertraline HCl (Zoloft) 12.5 mg PO DAILY [facility] Last Admin: 10/31/16 08:05 Dose: 12.5 mg - Labs Labs: 10/23/16 14:35 10/30/16 07:43 PT 10.6 SECONDS (9.6-11.2) 10/23/16 14:35 INR 1.02 (0.92-1.08) 10/23/16 14:35 Assessment and Plan (1) CVA (cerebral vascular accident) Status: Acute
[2016-11-01] MEDS: Insulin Lispro (humaLOG) 100 Units/ml Inj SC SCH ×4 (06:33→21:38)
[2016-11-01] MEDS: Calcium-Vit D 500 mg-200 Units Tab UD PO SCH ×2 (08:39→16:44)
[2016-11-01] MEDS: GlipiZIDE 5 mg SR Tab PO SCH (08:40)
--- NOTE | 2016-11-01 18:49 | CP.PCM.PN ---
Subjective - Date & Time of Evaluation Date of Evaluation: 11/01/16 Time of Evaluation: 16:00 Objective - Vital Signs/Intake and Output Vital Signs (last 24 hours): Temp Pulse Resp BP Pulse Ox 97.9 F 69 20 150/73 100 11/01/16 08:29 11/01/16 14:36 11/01/16 08:29 11/01/16 14:36 11/01/16 08:29 - Medications Medications: Current Medications Acetaminophen (Tylenol 325mg Tab) 650 mg PO Q6 PRN PRN Reason: PAIN SCALE 4-10 Last Admin: 10/28/16 11:34 Dose: 650 mg Amlodipine Besylate (Norvasc) 10 mg PO DAILY [facility] Last Admin: 11/01/16 08:40 Dose: 10 mg Aspirin (Ecotrin) 81 mg PO DAILY [facility] Last Admin: 11/01/16 08:40 Dose: 81 mg Atorvastatin Calcium (Lipitor) 40 mg PO HS [facility] Last Admin: 10/31/16 21:03 Dose: 40 mg Calcium/Vitamin D (Oyster Shell Calcium/Vitamin D 500 Mg-200 Iu) 1 tab PO BIDWM [facility] Last Admin: 11/01/16 16:44 Dose: 1 tab Clopidogrel Bisulfate (Plavix) 75 mg PO DAILY [facility] Last Admin: 11/01/16 08:40 Dose: 75 mg Ergocalciferol (Drisdol 50,000 Intl Units Cap) 1 cap PO Q7D [facility] Stop: 01/14/17 09:01 Last Admin: 10/29/16 08:45 Dose: 1 cap Famotidine (Pepcid) 20 mg PO BID [facility] Last Admin: 11/01/16 16:44 Dose: 20 mg Gabapentin (Neurontin) 300 mg PO HS [facility] Last Admin: 10/31/16 21:04 Dose: 300 mg Glipizide (Glucotrol Xl) 5 mg PO DAILY [facility] Last Admin: 11/01/16 08:40 Dose: 5 mg Heparin Sodium (Porcine) (Heparin) 5,000 units SC Q8 [facility] PRN Reason: Protocol Last Admin: 11/01/16 14:36 Dose: 5,000 units Hydralazine HCl (Apresoline) 100 mg PO Q8 [facility] Last Admin: 11/01/16 14:36 Dose: 100 mg Insulin Human Lispro (Humalog) 0 units SC ACHS [facility] PRN Reason: Protocol Last Admin: 11/01/16 16:19 Dose: Not Given Sertraline HCl (Zoloft) 12.5 mg PO DAILY [facility] Last Admin: 11/01/16 08:40 Dose: 12.5 mg - Labs Labs: 10/23/16 14:35 10/30/16 07:43 PT 10.6 SECONDS (9.6-11.2) 10/23/16 14:35 INR 1.02 (0.92-1.08) 10/23/16 14:35 Assessment and Plan (1) CVA (cerebral vascular accident) Status: Acute
[2016-11-01 20:48] VITALS: TEMP 97.5
[2016-11-02] MEDS: Insulin Lispro (humaLOG) 100 Units/ml Inj SC SCH ×2 (06:31→12:24)
[2016-11-02] MEDS: GlipiZIDE 5 mg SR Tab PO SCH (09:05)
[2016-11-02] MEDS: Calcium-Vit D 500 mg-200 Units Tab UD PO SCH (09:05)
[2016-11-02 09:06] VITALS: BP 167/75; PULSE 68
[2016-11-02 09:23] VITALS: RESP 19; O2SAT 96
--- NOTE | 2016-11-02 12:56 | CP.PCM.DIS ---
Provider - Provider Date of Admission: 10/13/16 18:15 Attending physician: Sammie Christianson MD Primary care physician: Marcelino Mckeon MD Time Spent in preparation of Discharge (in minutes): 30 Diagnosis - Discharge Diagnosis (1) CVA (cerebral vascular accident) Status: Acute Priority: High (2) Diabetes mellitus Status: Chronic Priority: Low (3) Hypertension Status: Chronic Priority: Low (4) Left hemiplegia Status: Acute Priority: Low Hospital Course - Lab Results Lab Results: Most Recent Lab Values WBC 8.8 K/uL (4.8-10.8) 10/23/16 14:35 RBC 4.60 Mil/uL (4.40-5.90) 10/23/16 14:35 Hgb 12.5 g/dL (12.0-18.0) 10/23/16 14:35 Hct 37.9 % (35.0-51.0) 10/23/16 14:35 MCV 82.3 fl (80.0-94.0) 10/23/16 14:35 MCH 27.2 pg (27.0-31.0) 10/23/16 14:35 MCHC 33.1 g/dL (33.0-37.0) 10/23/16 14:35 RDW 15.2 % (11.5-14.5) H 10/23/16 14:35 Plt Count 146 K/uL (130-400) 10/23/16 14:35 MPV 11.2 fl (7.2-11.7) 10/23/16 14:35 Neut % (Auto) 68.3 % (50.0-75.0) 10/23/16 14:35 Lymph % (Auto) 20.0 % (20.0-40.0) 10/23/16 14:35 [place] % (Auto) 8.4 % (0.0-10.0) 10/23/16 14:35 Eos % (Auto) 2.5 % (0.0-4.0) 10/23/16 14:35 Baso % (Auto) 0.8 % (0.0-2.0) 10/23/16 14:35 Neut # 6.0 K/uL (1.8-7.0) 10/23/16 14:35 Lymph # 1.8 K/uL (1.0-4.3) 10/23/16 14:35 [place] # 0.7 K/uL (0.0-0.8) 10/23/16 14:35 Eos # 0.2 K/uL (0.0-0.7) 10/23/16 14:35 Baso # 0.1 K/uL (0.0-0.2) 10/23/16 14:35 PT 10.6 SECONDS (9.6-11.2) 10/23/16 14:35 INR 1.02 (0.92-1.08) 10/23/16 14:35 Sodium 138 mmol/l (132-148) 10/30/16 07:43 Potassium 4.4 MMOL/L (3.6-5.0) 10/30/16 07:43 Chloride 105 mmol/L (98-107) 10/30/16 07:43 Carbon Dioxide 23 mmol/L (22-30) 10/30/16 07:43 Anion Gap 14 (10-20) 10/30/16 07:43 BUN 43 mg/dl (9-20) H 10/30/16 07:43 Creatinine 2.2 mg/dL (0.8-1.5) H 10/30/16 07:43 Est GFR ( Amer) 35 10/30/16 07:43 Est GFR (Non-Af Amer) 29 10/30/16 07:43 POC Glucose (mg/dL) 84 mg/dL (65-110) 11/02/16 05:49 Random Glucose 81 mg/dL (75-110) 10/30/16 07:43 Calcium 9.4 mg/dL (8.4-10.2) 10/30/16 07:43 Total Bilirubin 0.4 mg/dl (0.2-1.3) 10/23/16 14:35 AST 42 U/L (17-59) 10/23/16 14:35 ALT 61 U/L (21-72) 10/23/16 14:35 Alkaline Phosphatase 116 U/L (38-126) 10/23/16 14:35 CK-MB (Mass) 1.70 ng/mL (0.0-3.38) 10/23/16 14:35 Troponin I < 0.0120 ng/mL (0.00-0.120) 10/23/16 14:35 Total Protein 7.3 G/DL (6.3-8.2) 10/23/16 14:35 Albumin 3.9 g/dL (3.5-5.0) 10/23/16 14:35 Globulin 3.4 gm/dL (2.2-3.9) 10/23/16 14:35 Albumin/Globulin Ratio 1.1 (1.0-2.1) 10/23/16 14:35 Vitamin B12 572 pg/mL (239-931) 10/27/16 05:40 25-OH Vitamin D Total 18.2 NG/ML (30.0-100.0) L 10/27/16 05:40 Discharge Exam - Head Exam Head Exam: ATRAUMATIC, NORMAL INSPECTION, NORMOCEPHALIC Discharge Plan - Follow Up Plan Condition: FAIR Disposition: REHAB FACILITY/REHAB UNIT Instructions: Hypertension (DC), Hypertension (GEN) Referrals: Marcelino Mckeon MD [Primary Care Provider] -
--- NOTE | 2016-11-03 14:11 | CP.PCM.DIS ---
Provider - Provider Date of Admission: 10/13/16 18:15 Attending physician: Sammie Christianson MD Primary care physician: Marcelino Mckeon MD Time Spent in preparation of Discharge (in minutes): 5 [employer] Discharge Summary Discharge date: 11/02/16 - Review of Plan of Care Physical Therapy: Fail to Attain Occupational Therapy: Fail to Attain Recreational Therapy: Fail to Attain - Goal Attainment Ambulation: Fail to Attain Status on discharge: 101-200 Feet Assistive device: Rolling Walker Level of assistance: Contact Guard ADL: Fail to Attain Level of assistance: Contact Guard Transfer: Fail to Attain Level of assistance: Supervision Speech Comprehension: No Impairment - Barriers to discharge identified Barrier to discharge: Home environment - Plan for patients rehabilitation in the Subacute facility (weeks): 4 Discharge instructions provided to patient and family: Instructions with medications, Follow up with PMD and/or surgeon Hospital Course - Lab Results Lab Results: Most Recent Lab Values WBC 8.8 K/uL (4.8-10.8) 10/23/16 14:35 RBC 4.60 Mil/uL (4.40-5.90) 10/23/16 14:35 Hgb 12.5 g/dL (12.0-18.0) 10/23/16 14:35 Hct 37.9 % (35.0-51.0) 10/23/16 14:35 MCV 82.3 fl (80.0-94.0) 10/23/16 14:35 MCH 27.2 pg (27.0-31.0) 10/23/16 14:35 MCHC 33.1 g/dL (33.0-37.0) 10/23/16 14:35 RDW 15.2 % (11.5-14.5) H 10/23/16 14:35 Plt Count 146 K/uL (130-400) 10/23/16 14:35 MPV 11.2 fl (7.2-11.7) 10/23/16 14:35 Neut % (Auto) 68.3 % (50.0-75.0) 10/23/16 14:35 Lymph % (Auto) 20.0 % (20.0-40.0) 10/23/16 14:35 Collin % (Auto) 8.4 % (0.0-10.0) 10/23/16 14:35 Eos % (Auto) 2.5 % (0.0-4.0) 10/23/16 14:35 Baso % (Auto) 0.8 % (0.0-2.0) 10/23/16 14:35 Neut # 6.0 K/uL (1.8-7.0) 10/23/16 14:35 Lymph # 1.8 K/uL (1.0-4.3) 10/23/16 14:35 Collin # 0.7 K/uL (0.0-0.8) 10/23/16 14:35 Eos # 0.2 K/uL (0.0-0.7) 10/23/16 14:35 Baso # 0.1 K/uL (0.0-0.2) 10/23/16 14:35 PT 10.6 SECONDS (9.6-11.2) 10/23/16 14:35 INR 1.02 (0.92-1.08) 10/23/16 14:35 Sodium 138 mmol/l (132-148) 10/30/16 07:43 Potassium 4.4 MMOL/L (3.6-5.0) 10/30/16 07:43 Chloride 105 mmol/L (98-107) 10/30/16 07:43 Carbon Dioxide 23 mmol/L (22-30) 10/30/16 07:43 Anion Gap 14 (10-20) 10/30/16 07:43 BUN 43 mg/dl (9-20) H 10/30/16 07:43 Creatinine 2.2 mg/dL (0.8-1.5) H 10/30/16 07:43 Est GFR ( Amer) 35 10/30/16 07:43 Est GFR (Non-Af Amer) 29 10/30/16 07:43 POC Glucose (mg/dL) 144 mg/dL (65-110) H 11/02/16 12:04 Random Glucose 81 mg/dL (75-110) 10/30/16 07:43 Calcium 9.4 mg/dL (8.4-10.2) 10/30/16 07:43 Total Bilirubin 0.4 mg/dl (0.2-1.3) 10/23/16 14:35 AST 42 U/L (17-59) 10/23/16 14:35 ALT 61 U/L (21-72) 10/23/16 14:35 Alkaline Phosphatase 116 U/L (38-126) 10/23/16 14:35 CK-MB (Mass) 1.70 ng/mL (0.0-3.38) 10/23/16 14:35 Troponin I < 0.0120 ng/mL (0.00-0.120) 10/23/16 14:35 Total Protein 7.3 G/DL (6.3-8.2) 10/23/16 14:35 Albumin 3.9 g/dL (3.5-5.0) 10/23/16 14:35 Globulin 3.4 gm/dL (2.2-3.9) 10/23/16 14:35 Albumin/Globulin Ratio 1.1 (1.0-2.1) 10/23/16 14:35 Vitamin B12 572 pg/mL (239-931) 10/27/16 05:40 25-OH Vitamin D Total 18.2 NG/ML (30.0-100.0) L 10/27/16 05:40 Discharge Exam - Head Exam Head Exam: ATRAUMATIC, NORMAL INSPECTION, NORMOCEPHALIC Discharge Plan - Follow Up Plan Condition: FAIR Disposition: TRANSF TO SNF Instructions: Hypertension (DC), Hypertension (GEN) Referrals: Marcelino Mckeon MD [Primary Care Provider] -
== END 2016-11-02 13:52 | DRG 57 ==
LOC: TMPLOALOC 10-23 14:30 → UNDODISIN 10-23 14:30
PROVIDERS: ADMIT Internal Medicine; ATTEND Internal Medicine
PROC: F08Z2ZZ Grooming/Personal Hygiene Treatment (ICD-10-PCS; principal; 2016-10-13)
PROC: F08Z3ZZ Feeding/Eating Treatment (ICD-10-PCS; 2016-10-13)
PROC: F07L6ZZ Therapeutic Exercise Treatment of Musculoskeletal System - Lower Back / Lower Extremity (ICD-10-PCS; 2016-10-13)
PROC: F06Z6ZZ Communicative/Cognitive Integration Skills Treatment (ICD-10-PCS; 2016-10-13)
PROC: F07Z9FZ Gait Training/Functional Ambulation Treatment using Assistive, Adaptive, Supportive or Protective Equipment (ICD-10-PCS; 2016-10-13)
DX: I69.354 Hemiplegia and hemiparesis following cerebral infarction affecting left non-dominant side (principal); E11.22 Type 2 diabetes mellitus with diabetic chronic kidney disease; E11.40 Type 2 diabetes mellitus with diabetic neuropathy, unspecified; R56.9 Unspecified convulsions; H53.462 Homonymous bilateral field defects, left side; I69.322 Dysarthria following cerebral infarction; I69.391 Dysphagia following cerebral infarction; I69.398 Other sequelae of cerebral infarction; R13.11 Dysphagia, oral phase; E78.5 Hyperlipidemia, unspecified; H81.10 Benign paroxysmal vertigo, unspecified ear; I12.9 Hypertensive chronic kidney disease with stage 1 through stage 4 chronic kidney disease, or unspecified chronic kidney disease; N18.2 Chronic kidney disease, stage 2 (mild); F43.23 Adjustment disorder with mixed anxiety and depressed mood; R07.9 Chest pain, unspecified